=== PATIENT | male | born 1965 | race Caucasian/White ===

== ENCOUNTER 2016-12-31 12:01 | Emergency (ER) | payer BC ==
[~2016-12-31] VITALS: Ht 177.8 cm; Wt 131.1 kg
[2016-12-31 12:15] VITALS: BP 174/117
[2016-12-31] MEDS ORDERED: OXYCODONE/APAP 5/325 TABLET. PO ONE (12:30)
[2016-12-31] MEDS ORDERED: NEOMY/BACITR/POLYMYXIN OINT PACKET. TP ONE (12:30)
[2016-12-31] MEDS ORDERED: DIPHTH,PERTUSS(ACELL),TET TOX 0.5 ML DISP.SYRIN. VAX IM ONE (12:30)
[2016-12-31] MEDS ORDERED: HYDROMORPHONE 2 MG/ML VIAL. IM ONE (13:00)
[2016-12-31] MEDS ORDERED: OXYC-323 PO (13:18)
[2016-12-31] MEDS ORDERED: SILV20CR4 TP (13:18)
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
== END 2016-12-31 13:21 | disposition home or self-care (01) ==
LOC: ER 12:01
DX: T23.201A Burn of second degree of right hand, unspecified site, initial encounter (principal); T23.171A Burn of first degree of right wrist, initial encounter; T21.12XA Burn of first degree of abdominal wall, initial encounter; T22.111A Burn of first degree of right forearm, initial encounter; T31.0 Burns involving less than 10% of body surface; E78.00 Pure hypercholesterolemia, unspecified; I10 Essential (primary) hypertension; E03.9 Hypothyroidism, unspecified; X12.XXXA Contact with other hot fluids, initial encounter; Y93.89 Activity, other specified; Y92.89 Other specified places as the place of occurrence of the external cause; Y99.8 Other external cause status
CPT/HCPCS: 90471; 90715; 96372; 99284; J1170

== ENCOUNTER → 2018-05-27 | Outpatient (CLI) | payer OTHER | END | disposition home or self-care (01) | LOC: KCIC US 12:06 | DX: M79.89 Other specified soft tissue disorders (principal) | CPT/HCPCS: 93971 ==

== ENCOUNTER 2021-07-27 08:46 | Inpatient (IN) | payer OTHER ==
[~2021-07-27] VITALS: Ht 172.7 cm; Wt 123.6 kg
[~2021-07-27 08:46] MED LIST: OXYC1TAB15 PO; SILV20CR14 TP
[2021-07-27 21:15] VITALS: BP 145/103
[2021-07-27 21:30] VITALS: BP 133/88
[2021-07-27 21:45] VITALS: BP 159/107
[2021-07-27 22:00] VITALS: BP 133/86
[2021-07-27 22:15] VITALS: BP 157/107
[2021-07-27 23:00] VITALS: BP 158/94
[2021-07-27] MEDS ORDERED: ATROPINE 0.5 MG/5 ML DISP.SYRINGE. IV PRN (23:00)
[2021-07-27] MEDS ORDERED: IV NORMAL SALINE 500ML BAG 500 ML IV PRN (23:00)
[2021-07-27] MEDS: DEXMEDETOMIDINE 400 MCG in IV NORMAL SALINE 100ML 96 ML IV PRN (23:27)
[2021-07-27] MEDS: STERILE WATER for RESP 1,000 ML BAG. INH PRN ×2 (23:27→23:50)
[2021-07-28] VITALS (24 sets, daily range): BP systolic 111–168; BP diastolic 70–112
[2021-07-28] MEDS ORDERED: CHOL500021 PO (03:59)
[2021-07-28] MEDS ORDERED: ASPI-630 PO (03:59)
[2021-07-28] MEDS ORDERED: PANT40TA77 PO (03:59)
[2021-07-28] MEDS ORDERED: LEVO25TA4 PO (03:59)
[2021-07-28] MEDS ORDERED: LISI1TAB20 PO (03:59)
[2021-07-28] MEDS ORDERED: AMLO-186 PO (03:59)
[2021-07-28] MEDS ORDERED: SIMV10TA15 PO (03:59)
--- NOTE | 2021-07-28 04:00 | NUR ---
Patient admitted to room 105 via gurney accompanied by junior oracle dba x2 at 2100. Patient impulsive, oriented to person, place, and situation. Patient on bipap but SOA and tachypnic. Lungs diminished. Patient attached to ICU monitors, SR on monitor. No complaints of pain. Patient complaining of discomfort with bipap. Patient oriented to unit routines, call light, bed controls, tv controls, activity level (bedrest), and diet (regular). Urinal placed at bedside. Patient stable at this time. Will call Dr. Desai for orders. Patient placed on Vapotherm at 40L/100% at 2300, sats sitting at 87-91%. Precedex started to calm patient after he became increasingly impulsive and got out of bed. Patient's breathing slowed. At 0345 patient's sats dropped to low 80s despite attempts to deep breathe and bolus of Precedex. Patient placed back on bipap and sats maintaining in low to mid 90s. Patient stable and comfortable, will continue to monitor. See admission assessment and documentation for further information.
[2021-07-28 05:49] LABS: BASO % 0 % (0-3); CREATININE 1.1 mg/dL (0.7-1.3); EOS % 0 % (0-3); GFR 69.8; HEMATOCRIT 44.1 % (39.0-53.0); HEMOGLOBIN 15.1 g/dL (13.0-17.5); LYMPH # 0.5 x10^3/uL (1.0-4.8); LYMPH % 6 % (24-48); MEAN CORPUSCULAR HEMOGLOBIN 29 pg (25-35); MEAN CORPUSCULAR HGB CONC 34 g/dL (31-37); MEAN CORPUSCULAR VOLUME 85 fL (79-100); MONO # 0.4 x10^3/uL (0.0-1.1); MONO % 4 % (0-9); NEUT # 7.8 x10^3/uL (1.8-7.7); NEUT % 90 % (31-73); PLATELET COUNT 327 x10^3/uL (140-400); POTASSIUM 3.8 mmol/L (3.5-5.1); RED CELL DISTRIBUTION WIDTH 15.1 % (11.5-14.5); WHITE BLOOD COUNT 8.8 x10^3/uL (4.0-11.0)
[2021-07-28] MEDS: DEXMEDETOMIDINE 400 MCG in IV NORMAL SALINE 100ML 96 ML IV PRN ×4 (06:04→22:53)
[2021-07-28 07:43] LABS: BASE EXCESS ABG -4 mmol/L (-3-3); HCO3 ABG 19 mmol/L (21-28); PCO2 ABG 27 mmHg (35-46); PO2 ABG 58 mmHg (75-108); SAT O2 ABG 90 % (92-99)
[2021-07-28 08:31] LABS: FIO2 ABG 100
[2021-07-28] MEDS ORDERED: ACETAMINOPHEN 325 MG TABLET. PO PRN (09:00)
[2021-07-28] MEDS ORDERED: ONDANSETRON PF 4 MG/2 ML VIAL. IVP PRN (09:00)
--- NOTE | 2021-07-28 10:27 | CONS ---
DATE OF CONSULTATION: 07/28/2021 PULMONARY CONSULTATION ATTENDING PHYSICIAN: Dr. Desai. REASON FOR CONSULTATION: Respiratory failure, COVID-19 viral pneumonia. HISTORY OF PRESENT ILLNESS: The patient is a 56-year-old male who is obese with a BMI of 39. The patient is a nonsmoker. He has past medical history of hypertension, hyperlipidemia. He was brought initially to [facility] with dyspnea, hypoxic respiratory failure secondary to COVID-19 pneumonia. The patient did not receive any COVID vaccine. He was transferred to our facility as his oxygen requirement continued to increase. He is currently on BiPAP at 100% FIO2. Setting is 16/8. His saturations are in the mid to high 90s. His ABG showed a pH of 7.45, pCO2 of 27 and a pO2 of 58 with bicarbonate of 19. His BUN was 34, creatinine 1.1. I have been asked to see him for further evaluation. He does not appear to be in any obvious respiratory distress. No paradoxical breathing. PAST MEDICAL HISTORY: Significant for history of hypertension, hyperlipidemia, osteomyelitis, cellulitis of the left foot and seasonal allergies. PAST SURGICAL HISTORY: Left foot I and D. SOCIAL HISTORY: Nonsmoker. FAMILY HISTORY: Father alive. Mother with MVA. REVIEW OF SYSTEMS: Unable to obtain details system review as the patient is on a BiPAP. MEDICATIONS: Reviewed as listed in the MRAD including Lovenox for DVT prophylaxis, Zosyn and azithromycin along with dexamethasone. PHYSICAL EXAMINATION: GENERAL: He is in no obvious respiratory distress, no paradoxical breathing. He is obese. VITAL SIGNS: Visual exam done due to COVID-19. He is on BiPAP 100% FIO2. Saturations in the mid 90s. He is afebrile. SKIN: With no rash. EXTREMITIES: No leg edema. LABORATORY DATA: Reviewed. ABG discussed in my history of present illness. Sodium 142, potassium 3.8, chloride 108, bicarbonate 22, BUN 34, creatinine 1.1. Calcium 8.0. White cell count 8.8. IMPRESSION: 1. Acute hypoxic respiratory failure secondary to COVID-19 viral pneumonia requiring 100% FiO2 via BiPAP. 2. Abnormal chest x-ray with diffuse bilateral patchy interstitial infiltrates consistent with COVID-19 viral pneumonia. 3. Unvaccinated for COVID-19. 4. Underlying obesity, also contributing to hypoxia. RECOMMENDATIONS: 1. We will continue present 100% FiO2 via BiPAP. 2. The patient is at risk for respiratory failure and need for mechanical ventilation. We will watch his respiratory status closely. 3. We will use Precedex for anxiety and restlessness. 4. Continue empiric antibiotic. 5. Dexamethasone per protocol. 6. Finish the course of remdesivir. 7. Lovenox for DVT prophylaxis. 8. Chart reviewed. Imaging studies reviewed. Discussed with Dr. Desai. Total critical care time 37 minutes. CLYDE/CAMRYN DR: CLYDE/jackeline TID: [id number]
[2021-07-28] MEDS: AZITHROMYCIN 250 MG TABLET. PO SCH (10:33)
[2021-07-28] MEDS: DEXAMETHASONE SOD PHOS 4 MG/ML VIAL IVP SCH (10:34)
--- NOTE | 2021-07-28 11:04 | HP ---
ADMIT DATE: 07/27/2021 HISTORY OF PRESENT ILLNESS: The patient is a 56-year-old male patient who was admitted to [facility] through the Emergency Room with a complaint of shortness of breath and reports that the onset was about 9 days ago without any known inciting event, sick contact or recent travel. initial upper respiratory symptoms such as rhinorrhea and postnasal drip cough, with increased wheezing and inability to catch his breath. He went into his primary care provider's office on the day of admission, was found to be 79% on room air, prompting emergency medical service personnel to be called and the patient transferred to [facility] Emergency Room. He apparently has been following with his primary care physician and has not been there quite for years, has no known medical issues. Does not take any medicines. Denies smoking, alcohol or illicit drugs. No known history of cardiac disease, significant family history. He is unvaccinated against COVID. He was evaluated in the Emergency Room and has had lab work as well as imaging studies. His chest x-ray showed he has multifocal interstitial infiltrate, suspected trace pleural effusion, no pneumothorax. The heart is normal in size. His white cell count, hemoglobin, hematocrit, and platelets were normal. Chemistry also showed chronic kidney disease. His blood gases on admission showed severe hypoxemia and his D-dimer was 1.56, and on 07/25, he was found to be positive for coronavirus infection with PCR and rapid testing. He was admitted to the ICU and apparently his oxygen requirement has been steadily worsening and he was on 15 liters by nasal cannula and required BiPAP machine with FiO2 of 100% oxygen. As he continued to desaturate, a decision was made to transfer him to [facility] to ICU for further evaluation and treatment. He has received remdesivir, piperacillin and azithromycin as well as dexamethasone. PAST MEDICAL HISTORY: Apparently unremarkable. PAST SURGICAL HISTORY: Unremarkable. ALLERGIES: HE IS ALLERGIC TO CAT DANDER. MEDICATIONS: He was on no medication at home. FAMILY HISTORY: Unremarkable. SOCIAL HISTORY: He does not smoke, drink alcohol or use recreational drugs. PHYSICAL EXAMINATION: GENERAL: When he was transferred to [facility], he was apparently tachypneic, hypoxic, desaturates with minimal exertion. There was no pallor, jaundice, cyanosis or thyromegaly. No jugular venous distention. No lower limb edema. VITAL SIGNS: His heart rate was 78, blood pressure is 137/92, temperature was 98.1, respiratory rate was 28 and oxygen saturation was 90% on FiO2 of 100% on BiPAP machine. HEAD, EYES, EARS, NOSE, AND THROAT: Normocephalic, atraumatic. NECK: Supple. HEART: Showed normal first and second heart sounds, no gallop, rub or murmur. CHEST: Clear to auscultation, showed central trachea, equal bilateral expansion, air entry, vesicular breath sounds with bilateral crepitation and scattered rhonchi. ABDOMEN: Distended, soft, nontender. NEUROLOGIC: He was grossly intact. LABORATORY DATA: As of yesterday showed a white cell count 5800, hemoglobin 15.7, hematocrit 46.7, MCV 86 and platelet count 270,000 with normal manual differential. His chemistry showed a serum sodium 136, potassium 4.1, chloride 104, bicarbonate 25, anion gap of 7, BUN 38, creatinine 1.4. Estimated GFR was 52 mL per minute. Glucose 159, calcium was 8.1. His beta natriuretic peptide was only 45. Total protein 6.8, albumin 3. His D-dimer was 1.56 and his serology showed that he is positive for coronavirus by rapid testing and also by PCR. His chest x-ray showed that there is multifocal interstitial infiltrate, there are suspected trace pleural effusions. There is no pneumothorax. Heart size is normal and his chest x-ray showed that there is stable multifocal right upper and lower lobe and left lower lobe infiltrate. No significant pleural effusion is seen. No pneumothorax and stable cardiac silhouette. ASSESSMENT AND PLAN: In summary, this is a 56-year-old male patient who was transferred from [facility] ICU to [facility] with acute hypoxic respiratory failure, COVID-19 pneumonia versus superimposed community-acquired pneumonia. Plan is to continue with remdesivir, dexamethasone. Continue with IV antibiotic in the form of Zosyn and azithromycin. I will consult the lead generation marketing manager and follow him closely on a daily basis. NERISSA/MIGUEL DR: Charlie TID: [id number]
[2021-07-28 11:23] LABS: % ATYL 1 % (0-0); % BANDS 2 % (0-9); % LYMPHS 9 % (24-48); % MONOS 1 % (0-10); % SEGS 87 % (35-66); NUCLEATED RBC 1; PLT ESTIMATE ADEQUATE (ADEQUATE)
[2021-07-28] MEDS: PIPERACILLIN/TAZOBACTAM 3.375 GM in IV NORMAL SALINE 50ML 50 ML IV SCH ×3 (11:54→23:55)
--- NOTE | 2021-07-28 13:09 | NUR ---
SS following for discharge planning. SS reviewed pt chart and discussed with pt RN. Pt is from home and is currently on the BIPAP at 100%. COVID19 positive. Pt on Precedex. Pt on PO Azithromycin, IV Zosyn, IV Decadron, and IV Remdesivir. SS will continue to follow for discharge planning.
--- NOTE | 2021-07-28 14:40 | NUR ---
Allergies and reactions cat dander, fluticasone INR none BUN 34 Cr 1.1 Platelets 327 Blood culture done none blood culture results Order Verified yes Consent signed yes Previous PICC placement yes Past Medical/Surgical history and current diagnosis reviewed yes Patient Medical /Surgical History Related to PICC line placement Past central line or venous access device placement Problems breathing lying flat Septicemia/Bacteremia Special considerations for PICC line placement Infections Severe peripheral edema PICC placement indication Caustic medication class drug usage, buttermaker helper antibiotic usage, Multiple/ Frequent blood draws, Poor peripheral intravenous access Sarah Jama RN PICC Nurse Addendum: 07/28/21 at 1448 by SARAH JAMA RN Amended: Links added.
--- NOTE | 2021-07-28 14:43 | RAD ---
PORTABLE CHEST 1V Clinical History: PICC LINE PLACEMENT Technique: AP view of the chest was obtained at 07/28/2021 2:16 PM. Comparison: Chest radiograph from outside facility ([facility]), yesterday Findings: There is a new right upper extremity PICC line with tip projecting over the expected region of the cavoatrial junction. There is new subcutaneous emphysema in the bilateral neck. There is new pneumomediastinum. No definitive pneumothorax is identified. Minimal lucency in the right lung base is seen which could be a trace pneumothorax versus artifactual from adjacent infiltrate. Basilar predominant, patchy bilateral infiltrates are present throughout the lungs which have mildly increased in the interim. No acute osseous changes are identified. 1.Right upper extremity PICC line with tip projecting over the expected region of the cavoatrial junction 2. New pneumomediastinum and subcutaneous emphysema in the bilateral neck 3. No definitive pneumothorax is seen. Lucency in the right lung base makes exclusion of a tiny pneumothorax difficult. Attention on follow-up radiograph recommended 4. Patchy basilar predominant infiltrates bilaterally, mildly increased in the interim These findings were discussed with the patient's Sussy 2:25 PM
--- NOTE | 2021-07-28 14:45 | NUR ---
Procedure: Following complete explanation of the PICC procedure including the indications, risks, and potential complications, informed consent was obtained. The possibility for infection was discussed along with signs, symptoms, and prevention. All the questions were answered.yes Written and verbal patient education was provided. yes Hand hygiene performed. yes Standardized central line checklist was utilized. yes The patient was placed in the supine position, the arm was prepped with chlorhexidine and patient draped with maximum sterile barrier. 2 mL 1% lidocaine was infiltrated into the skin to provide local anesthesia. A thorough assessment of right upper extremity completed. Using real-time ultrasound guidance and standardized micro puncture set, the Basilic vein was punctured and a peel away sheath was placed using the modified Seldinger technique. A tip location device was used to ensure adequate catheter placement. The catheter was secured using a securement device and an antimicrobial patch was applied directly on the insertion site followed by a transparent dressing. All ports withdraw blood and flush without resistance. Patient tolerated the procedure without apparent complication(s). triple Lumen Power PICC placement successful and uncomplicated. Placement verified by EKG tip confirmation system and/or chest x-ray. Tip located in the CAJ Complications:none Addendum: 07/28/21 at 1448 by MARYANNE JOHNSON RN Amended: Links added.
--- NOTE | 2021-07-28 15:07 | PDOC ---
Provider Note Date of Service: DATE: 07/28/21 TIME: 15:05 Provider Note Called by RN about CXR post PICC line placement. I have reviewed CXR . Patient has developed Pneu-mediastinum. I did not see any definite PTX. d/w IR Dr Marin. will f/u CXR in am. I have reduced IPAP setting on BIPAP and will keep low TV Justifications for Admission Other Justification GERRY MONROY MD Jul 28, 2021 15:07
[2021-07-28] MEDS ORDERED: ENOXAPARIN 40 MG/0.4 ML SYRINGE. SQ SCH (17:00)
[2021-07-28] MEDS: REMDESIVIR 100mg in NORMAL SALINE 250ML X 4 DAYS IV SCH (17:40)
[2021-07-28] MEDS: fentaNYL PF VIAL 100 MCG/2 ML VIAL IVP PRN (17:40)
[2021-07-28] MEDS: LACTOBACILLUS RHAMNOSUS GG 1 CAPSULE. PO SCH (21:08)
--- NOTE | 2021-07-28 23:49 | PN ---
DATE: 07/28/2021 SUBJECTIVE: The patient is a 56-year-old male patient who was transferred from [facility] in the ICU where he was admitted with acute hypoxic respiratory failure due to coronavirus pneumonia with possible superimposed community-acquired pneumonia. His oxygen requirement has dramatically increased and he was on BiPAP, continued to desaturate even with FiO2 of 100%. He was treated with dexamethasone, remdesivir, antibiotics and given that he continued to be extremely tachypneic and hypoxic, a decision was made to transfer him to [facility] ICU. Apparently, attempt was made to treat him ____ was not helpful. He continued to desaturate and therefore, he continued to be on BiPAP machine, maintaining his oxygen saturation about 90% on FiO2 100%. When I saw him today, he was resting slightly propped up in bed, in no apparent respiratory distress. He continues to desaturates dramatically when the BiPAP is discontinued; however, he denied any chest pain or cough. PHYSICAL EXAMINATION: GENERAL: When I examined him, he looked well and was clearly in no apparent respiratory distress. No pallor, no jaundice, no cyanosis, or thyromegaly. No jugular venous distention. No limb edema. VITAL SIGNS: His heart rate was 62, blood pressure was 127/84, temperature 97.8, respiratory rate was 17 and oxygen saturation was 94%. HEAD, EYES, EARS, NOSE, AND THROAT: Normocephalic, atraumatic. NECK: Supple. HEART: Showed normal first and second heart sounds, no gallop, rub or murmur. CHEST: Showed central trachea, equal bilateral expansion, air entry, vesicular breath sounds, bilateral basal crepitation posteriorly. Few scattered rhonchi. ABDOMEN: Distended, soft, nontender. NEUROLOGIC: He was grossly intact. LABORATORY DATA: This morning showed a white cell count of 8800, hemoglobin 15, hematocrit 44, MCV 85 and platelet count of 327,000. His chemistry showed a serum sodium 142, potassium 3.8, chloride 108, bicarbonate 22, anion gap of 12, BUN 34, creatinine 1.1. Estimated GFR was 69 mL per minute. His glucose 169 and calcium was 8, his blood gases showed a pH of 7.45, pCO2 of 27, pO2 of 58, bicarbonate 19 and oxygen saturation was 90% on FiO2 of 100%. Did have a venous Doppler ultrasound of both lower extremities that revealed no evidence of deep vein thrombosis. PLAN: My plan is to continue with IV antibiotic. Continue with dexamethasone, remdesivir. I added Tylenol as well as fentanyl for pain and Lovenox for DVT prophylaxis. We will monitor obviously, his labs and progress and we have already consulted the research librarian to assist with his management. CORRINE/JOAQUIM DR: Charlie TID: [id number]
[2021-07-29] VITALS (28 sets, daily range): BP systolic 71–170; BP diastolic 50–113
[2021-07-29] MEDS: DEXMEDETOMIDINE 400 MCG in IV NORMAL SALINE 100ML 96 ML IV PRN ×6 (05:17→22:36)
[2021-07-29] MEDS: fentaNYL PF VIAL 100 MCG/2 ML VIAL IVP PRN (06:07)
[2021-07-29] MEDS: PIPERACILLIN/TAZOBACTAM 3.375 GM in IV NORMAL SALINE 50ML 50 ML IV SCH ×3 (06:11→17:20)
[2021-07-29 06:37] LABS: ALBUMIN 2.1 g/dL (3.4-5.0); ALBUMIN/GLOBULIN RATIO 0.5 (1.0-1.7); CALCIUM 7.8 mg/dL (8.5-10.1); GFR 77.9; HEMATOCRIT 45.1 % (39.0-53.0); HEMOGLOBIN 15.3 g/dL (13.0-17.5); RED BLOOD COUNT 5.34 x10^6/uL (4.30-5.70); RED CELL DISTRIBUTION WIDTH 14.7 % (11.5-14.5); TOTAL BILIRUBIN 0.6 mg/dL (0.2-1.0); TOTAL PROTEIN 6.2 g/dL (6.4-8.2); WHITE BLOOD COUNT 11.6 x10^3/uL (4.0-11.0)
[2021-07-29] MEDS ORDERED: MORPHINE SULFATE 4 MG/ML INJ. IV PRN (07:00)
[2021-07-29] MEDS ORDERED: MORPHINE SULFATE 2 MG/ML INJ. IV PRN (07:00)
[2021-07-29] MEDS ORDERED: PROPOFOL 100 ML IV PRN (07:00)
[2021-07-29] MEDS ORDERED: fentaNYL PF VIAL 100 MCG/2 ML VIAL IV PRN ×2 (07:00)
--- NOTE | 2021-07-29 07:00 | PDOC ---
PULMONARY PROGRESS NOTES DATE: 07/29/21 TIME: 06:56 Subjective on bipap agitated tachypneac on precedex pulling bipap mask at times sat in 80s didnt tolerate vapotherm Vitals Vital Signs Date Time Temp Pulse Resp B/P (MAP) Pulse Ox O2 Delivery O2 Flow Rate FiO2 07/29/21 06:00 84 37 139/95 (110) 86 BiPAP/CPAP 07/29/21 04:00 97.7 97.7 Comments ros unable to obtain tachypneac NCAT rrr + accessory muscle use +paradoxical abd motion no edema no rash Labs Laboratory Tests Test 07/28/21 05:10 07/28/21 07:39 07/29/21 05:45 White Blood Count 8.8 x10^3/uL (4.0-11.0) 11.6 x10^3/uL (4.0-11.0) Red Blood Count 5.20 x10^6/uL (4.30-5.70) 5.34 x10^6/uL (4.30-5.70) Hemoglobin 15.1 g/dL (13.0-17.5) 15.3 g/dL (13.0-17.5) Hematocrit 44.1 % (39.0-53.0) 45.1 % (39.0-53.0) Mean Corpuscular Volume 85 fL (79-100) 85 fL (79-100) Mean Corpuscular Hemoglobin 29 pg (25-35) 29 pg (25-35) Mean Corpuscular Hemoglobin Concent 34 g/dL (31-37) 34 g/dL (31-37) Red Cell Distribution Width 15.1 % (11.5-14.5) 14.7 % (11.5-14.5) Platelet Count 327 x10^3/uL (140-400) 248 x10^3/uL (140-400) Neutrophils (%) (Auto) 90 % (31-73) Lymphocytes (%) (Auto) 6 % (24-48) Monocytes (%) (Auto) 4 % (0-9) Eosinophils (%) (Auto) 0 % (0-3) Basophils (%) (Auto) 0 % (0-3) Neutrophils # (Auto) 7.8 x10^3/uL (1.8-7.7) Lymphocytes # (Auto) 0.5 x10^3/uL (1.0-4.8) Monocytes # (Auto) 0.4 x10^3/uL (0.0-1.1) Eosinophils # (Auto) 0.0 x10^3/uL (0.0-0.7) Basophils # (Auto) 0.0 x10^3/uL (0.0-0.2) Segmented Neutrophils % 87 % (35-66) Band Neutrophils % 2 % (0-9) Lymphocytes % 9 % (24-48) Atypical Lymphocytes % (Manual) 1 % (0-0) Monocytes % 1 % (0-10) Nucleated Red Blood Cells 1 Platelet Estimate Adequate (ADEQUATE) Sodium Level 142 mmol/L (136-145) 142 mmol/L (136-145) Potassium Level 3.8 mmol/L (3.5-5.1) 4.0 mmol/L (3.5-5.1) Chloride Level 108 mmol/L (98-107) 108 mmol/L (98-107) Carbon Dioxide Level 22 mmol/L (21-32) 23 mmol/L (21-32) Anion Gap 12 (6-14) 11 (6-14) Blood Urea Nitrogen 34 mg/dL (8-26) 29 mg/dL (8-26) Creatinine 1.1 mg/dL (0.7-1.3) 1.0 mg/dL (0.7-1.3) Estimated GFR (Cockcroft-Gault) 69.8 77.9 Glucose Level 169 mg/dL (70-99) 131 mg/dL (70-99) Calcium Level 8.0 mg/dL (8.5-10.1) 7.8 mg/dL (8.5-10.1) O2 Saturation 90 % (92-99) Arterial Blood pH 7.45 (7.35-7.45) Arterial Blood pCO2 at Patient Temp 27 mmHg (35-46) Arterial Blood pO2 at Patient Temp 58 mmHg (75-108) Arterial Blood HCO3 19 mmol/L (21-28) Arterial Blood Base Excess -4 mmol/L (-3-3) FiO2 100 BUN/Creatinine Ratio 29 (6-20) Total Bilirubin 0.6 mg/dL (0.2-1.0) Aspartate Amino Transf (AST/SGOT) 54 U/L (15-37) Alanine Aminotransferase (ALT/SGPT) 56 U/L (16-63) Alkaline Phosphatase 55 U/L (46-116) Total Protein 6.2 g/dL (6.4-8.2) Albumin 2.1 g/dL (3.4-5.0) Albumin/Globulin Ratio 0.5 (1.0-1.7) Laboratory Tests Test 07/28/21 07:39 07/29/21 05:45 O2 Saturation 90 % (92-99) Arterial Blood pH 7.45 (7.35-7.45) Arterial Blood pCO2 at Patient Temp 27 mmHg (35-46) Arterial Blood pO2 at Patient Temp 58 mmHg (75-108) Arterial Blood HCO3 19 mmol/L (21-28) Arterial Blood Base Excess -4 mmol/L (-3-3) FiO2 100 White Blood Count 11.6 x10^3/uL (4.0-11.0) Red Blood Count 5.34 x10^6/uL (4.30-5.70) Hemoglobin 15.3 g/dL (13.0-17.5) Hematocrit 45.1 % (39.0-53.0) Mean Corpuscular Volume 85 fL (79-100) Mean Corpuscular Hemoglobin 29 pg (25-35) Mean Corpuscular Hemoglobin Concent 34 g/dL (31-37) Red Cell Distribution Width 14.7 % (11.5-14.5) Platelet Count 248 x10^3/uL (140-400) Sodium Level 142 mmol/L (136-145) Potassium Level 4.0 mmol/L (3.5-5.1) Chloride Level 108 mmol/L (98-107) Carbon Dioxide Level 23 mmol/L (21-32) Anion Gap 11 (6-14) Blood Urea Nitrogen 29 mg/dL (8-26) Creatinine 1.0 mg/dL (0.7-1.3) Estimated GFR (Cockcroft-Gault) 77.9 BUN/Creatinine Ratio 29 (6-20) Glucose Level 131 mg/dL (70-99) Calcium Level 7.8 mg/dL (8.5-10.1) Total Bilirubin 0.6 mg/dL (0.2-1.0) Aspartate Amino Transf (AST/SGOT) 54 U/L (15-37) Alanine Aminotransferase (ALT/SGPT) 56 U/L (16-63) Alkaline Phosphatase 55 U/L (46-116) Total Protein 6.2 g/dL (6.4-8.2) Albumin 2.1 g/dL (3.4-5.0) Albumin/Globulin Ratio 0.5 (1.0-1.7) Medications Active Scripts Medications Dose Route/Sig Max Daily Dose Days Date Category Dose Instructions Simvastatin 10 Mg Tablet 1 Tab PO QHS 07/28/21 Reported Amlodipine Besylate 5 Mg Tablet 5 Mg PO DAILY 07/28/21 Reported Lisinopril-Hctz 20-25 Mg Tab (Lisinopril/Hydrochlorothiazide) 1 Each Tablet 1 Tab PO DAILY 07/28/21 Reported Levothyroxine Sodium 25 Mcg Tablet 1 Tab PO DAILY 07/28/21 Reported D3-50 (Cholecalciferol (Vitamin D3)) 50,000 Unit Capsule 5,000 Unit PO DAILY 07/28/21 Reported Pantoprazole Sodium (Pantoprazole Sodium) 40 Mg Tablet.dr 20 Mg PO DAILYAC 07/28/21 Reported Aspirin 81 Mg Tab.chew 81 Mg PO DAILY 07/28/21 Reported Silvadene (Silver Sulfadiazine) 20 Gm Cream..g. 1 Keo TP BID 12/31/16 Rx Apply twice a day to the burn area Percocet 5-325 Mg Tablet (Oxycodone/Acetaminophen) 1 Each Tablet 1-2 Tab PO Q4-6HRS 12/31/16 Rx Comments cxr reviewed b lat infilt ett ok Impression . IMPRESSION: 1. Acute hypoxic respiratory failure secondary to COVID-19 viral pneumonia/ARDS worsening 2. Abnormal chest x-ray with diffuse bilateral patchy interstitial infiltrates consistent with COVID-19 viral pneumonia. 3. Unvaccinated for COVID-19. 4. Underlying obesity, also contributing to hypoxia. 5. suspect ayesha Plan . RECOMMENDATIONS: 1. agitated on bipap 100% agreeable with intubation will ask anesthesia to intubate titrate fio2 to keep sat 94% abg reviewed increase rr to 28 increase peep slowly to keep sat 90% cxr b lat infilt ett ok 2. when intubated will add versed fentanyl to sedate 3. precedex 4. Continue empiric antibiotic. 5. Dexamethasone per protocol. 6. Finish the course of remdesivir. 7. Lovenox for DVT prophylaxis. 8. Chart reviewed. Imaging studies reviewed. discussed w rn rt multiple times critically ill cc time 30 min no overlap IVONE EVERETT MD Jul 29, 2021 06:59
--- NOTE | 2021-07-29 07:59 | RAD ---
EXAM: CHEST 1 VIEW History: Pneumomediastinum COMPARISON: 07/28/2021 TECHNIQUE: Single portable radiograph of the chest FINDINGS: Mild cardiomegaly. Pneumomediastinum is again identified. There are patchy diffuse airspac e opacities bilateral lungs likely atelectasis or infiltrate similar to prior exam. Right-sided PICC line tip projects in the proximal SVC region. Diffuse soft tissue emphysema in the lower neck and [address] st wall similar to prior exam. IMPRESSION: 1. Unchanged bilateral lung airspace opacities likely atelectasis or infiltrates. 2. Pneumomediastinum and diffuse soft tissue emphysema in the lower neck and chest wall similar to p rior exam. Electronically signed by: Kings Sullivan MD (07/29/2021 7:56 AM) [facility]
[2021-07-29] MEDS ORDERED: SUCCINYLCHOLINE 200 MG/10 ML VIAL. IV ONE (08:00)
[2021-07-29] MEDS ORDERED: VECURONIUM BOLUS 10 MG VIAL. IV PRN (08:00)
--- NOTE | 2021-07-29 08:01 | PDOC ---
Provider Note Date of Service: DATE: 07/29/21 TIME: 07:54 Provider Note ANESTHESIA note: Requested for intubation. Pt with Covid 19 respiratory failure currently on Bi-Pap. Pt. sedated with 100mg Propofol and 100mg Succinylcholine. #7.5 OET placed under direct visualization with#3 Glidescope without difficulty. BSBE, positive color change on EtCO2 indictor, secured at 23 cm at teeth by RT. Chest X-ray to be performed . placed on Ventilator. Justifications for Admission Other Justification BRANDYN JOINER CRNA Jul 29, 2021 08:01
--- NOTE | 2021-07-29 08:30 | NUR ---
Patient in respiratory distress, tachypneic, and very anxious, decision was made by Dr. Day to intubate. Patient intubated without problems. CXR completed to verify placement of ETT, KUB completed to verify OG tube placement. Notified Dr. Desai of ileus, received the order to keep strictly NPO, change azithromycin to IV, and start IV nutrition. Notified family of change in condition.
[2021-07-29] MEDS: MIDAZOLAM 100mg/100ml NS BAG 100 ML IV PRN ×2 (08:32→13:01)
--- NOTE | 2021-07-29 08:32 | RAD ---
EXAM: CHEST 1 VIEW History: Intubation COMPARISON: 07/29/2021 TECHNIQUE: Single portable radiograph of the chest FINDINGS: ET tube is identified in the trachea the level of the clavicles. The feeding tube is ident ified in the stomach. Right-sided PICC line with the tip projecting at SVC/RA junction. Pneumomediast inum is again identified. There are diffuse airspace opacities identified in the bilateral lungs agai n identified. Soft tissue emphysema lower neck and chest wall identified. IMPRESSION: 1. Lines and tubes as described. 2. Pneumomediastinum and diffuse airspace opacities in the lung similar to prior exam. Electronically signed by: Kings Sullivan MD (07/29/2021 8:30 AM) [id number]
--- NOTE | 2021-07-29 08:34 | RAD ---
Supine abdomen. HISTORY: OG placement Supine view the abdomen shows a gastric tube in good position. There are bilateral infiltrates in the lungs. There is bowel distention including small bowel and colon suggesting an ileus. IMPRESSION: 1. Bilateral infiltrates in the lungs. 2. OG tube in good position. 3. Bowel distention suggesting an ileus. Electronically signed by: Jerry Cochran MD (07/29/2021 8:31 AM) [id number]
--- NOTE | 2021-07-29 08:40 | PN ---
DATE: 07/29/2021 SUBJECTIVE: The patient has been apparently extremely agitated, tachypneic on Precedex, pulling his BiPAP mask at times, his oxygen saturation is only 80%. He did not tolerate Vapotherm and therefore, decision was made to intubate him. He was actually successfully intubated and was started on Versed and fentanyl. His D-dimer was extremely high, more than 20 mg and therefore, I will arrange for him to have venous Doppler ultrasound and will also start him on therapeutic dose of Lovenox as well as Protonix for GI prophylaxis. PHYSICAL EXAMINATION: GENERAL: When I saw him this morning, he was resting slightly propped up in bed, clearly tachypneic; however, there was no pallor, jaundice, cyanosis, no thyromegaly, no jugular venous distention. No limb edema. VITAL SIGNS: His heart rate was 84, blood pressure was 139/95, temperature was 97.7, respiratory rate 37, and oxygen saturation was 75% on FiO2 of 100%. HEAD, EYES, EARS, NOSE, EYES, EARS, NOSE, AND THROAT: Normocephalic, atraumatic. Has orotracheal and orogastric tubes in place. NECK: Supple. HEART: Normal first and second heart sound, no gallop or murmur. CHEST: Shows central trachea, equal chest expansion, air entry, vesicular breath sounds, very few scattered rhonchi. ABDOMEN: Distended, soft, nontender. NEUROLOGIC: He was sedated. LABORATORY DATA: As of this morning showed a white cell count of 11,600, hemoglobin 15, hematocrit 45, MCV 85 and platelet count 248,000. His serum sodium was 142, potassium 4, chloride 108, bicarbonate 23, anion gap of 11, BUN 29, creatinine 1, estimated GFR was 77.9 mL per minute. His glucose 131, calcium was 7.8. Total bilirubin, AST, ALT, alkaline phosphatase were normal. Total protein 6.2, albumin was 2. His D-dimer was extremely high, more than 20. ASSESSMENT: 1. Acute hypoxic respiratory failure. 2. COVID-19 pneumonia. PLAN: To continue with mechanical ventilation. Continue with sedation. Continue with empiric antibiotic, dexamethasone and remdesivir. I will order venous Doppler ultrasound and start him also on Lovenox 1 mg/kg subQ twice a day as well as Protonix for gastrointestinal prophylaxis. AMM/CAMRYN DR: Charlie TID: [id number]
[2021-07-29] MEDS: DEXAMETHASONE SOD PHOS 4 MG/ML VIAL IVP SCH (08:59)
[2021-07-29 09:00] LABS: BASE EXCESS COOX -7 mmol/L (-3-3); HCO3 COOX 22 mmol/L (21-28); METHEMOGLOBIN 0.4 % (0.0-1.9); OXYHEMOGLOBIN 78.7 %; PCO2 COOX 58 mmHg (35-46); PO2 COOX 54 mmHg (75-108); SAT O2 COOX 79 % (92-99)
[2021-07-29] MEDS: LACTOBACILLUS RHAMNOSUS GG 1 CAPSULE. PO SCH (09:00)
[2021-07-29] MEDS: AZITHROMYCIN 250 MG TABLET. PO SCH (09:00)
[2021-07-29] MEDS ORDERED: TPN PER PHARMACY MC PRN (09:15)
[2021-07-29] MEDS ORDERED: AA 4.25 %/CALCIUM/LYTES/D5W 1,000 ML IV SCH (10:00)
[2021-07-29] MEDS: AZITHROMYCIN 250 MG in IV NORMAL SALINE 250ML 250 ML IV SCH (10:51)
[2021-07-29] MEDS: NOREPINEPHRINE VIAL 8 MG in IV DEXTROSE 5% 250 ML IV PRN (11:29)
--- NOTE | 2021-07-29 11:30 | NUR ---
Pharmacy TPN Dosing Note S: MORENA HAMPTON is a 56 year old M Currently receiving Central Continuous TPN started 07/29/21 B:Pertinent PMH: NPO Height: 5 feet, 8 inches Weight: 121.5 kg Current diet: LABS: Sodium: 142 Potassium: 4.0 Chloride: 108 Calcium: 7.8 Corrected Calcium: Magnesium: CO2: 23 SCr: 1.0 Glucose: 131 Albumin: AST: 54 ALT: 56 TPN FORMULA: TPN TYPE: Central Continuous AMINO ACIDS: 60 gm DEXTROSE: 195 gm LIPIDS: gm SODIUM CHLORIDE: mEq SODIUM ACETATE: 70 mEq SODIUM PHOSPHATE: mmol POTASSIUM CHLORIDE: 50 mEq POTASSIUM ACETATE: mEq POTASSIUM PHOSPHATE: 13.6 mmol MAGNESIUM: 10 mEq CALCIUM: 10 mEq INSULIN: units MULTIPLE VITAMIN: 5 ml TRACE ELEMENTS: 1 ml(s) TPN PLAN: HOUSE TPN WITHOUT LIPID/PROPOFOL RUNNING, LAB IN AM WITH PHOS/MAG/ALB LEVEL. R: Begin TPN AT 63ML/HR Will monitor electrolytes, glucose, and tolerance to TPN. KEISHA EUBANKS [facility], 07/29/21 [id number]
[2021-07-29] MEDS: VECURONIUM BOLUS 10 MG VIAL. IV PRN ×2 (11:48→17:58)
[2021-07-29] MEDS ORDERED: fentaNYL HIGH DOSE PCA 2,750 ML IV PRN (12:15)
[2021-07-29] MEDS: fentaNYL HIGH DOSE PCA 55 ML IV PRN (13:01)
--- NOTE | 2021-07-29 17:53 | RAD ---
Bilateral lower extremity venous Doppler dated 07/29/2021 5:48 PM COMPARISON: none. CLINICAL INDICATION: Hypoxia Reason: severe hypoxia, swollen legs and elevated D DIMER, TECH NOTIFIED / Spl. Instructions: / History: FINDINGS: Grayscale, color-flow and spectral waveform analysis performed to include the deep venous system of b ilateral lower extremity. There is partially occlusive filling defect within the left popliteal vein. The left greater saphenous vein and calf veins are difficult to visualize. The remaining veins are p atent. IMPRESSION: 1. There is nonocclusive thrombosis of the left popliteal vein. The deep veins are otherwise patent. Electronically signed by: Thomas Storey MD (07/29/2021 5:51 PM) NIDIA
[2021-07-29] MEDS: REMDESIVIR 100mg in NORMAL SALINE 250ML X 4 DAYS IV SCH (17:58)
[2021-07-29 18:25] LABS: HEMATOCRIT 46.2 % (39.0-53.0); HEMOGLOBIN 15.2 g/dL (13.0-17.5); RED BLOOD COUNT 5.31 x10^6/uL (4.30-5.70); RED CELL DISTRIBUTION WIDTH 15.5 % (11.5-14.5)
--- NOTE | 2021-07-29 18:29 | RAD ---
Single view chest dated 07/29/2021 6:25 PM: COMPARISON: 07/29/2021 Clinical Indication: Emphysema. Findings: Single upright portable exam of the chest was performed. Heart and mediastinal contours are stable. E ndotracheal tube, nasogastric tube and right-sided PICC in place, unchanged. There is subcutaneous em physema at the lower neck and chest wall with small amount of pneumomediastinum. The degree of medias tinum may have slightly increased. There is no definite pneumothorax. Patchy airspace disease through out both lungs, unchanged. IMPRESSION: 1. Widespread airspace disease, not significant changed. 2. Stable position of tubes and lines. 3. Subcutaneous emphysema and pneumomediastinum, similar to prior study IMPRESSION: No acute radiographic abnormality. Electronically signed by: Thomas Storey MD (07/29/2021 6:26 PM) NIDIA
--- NOTE | 2021-07-29 18:34 | NUR ---
Noticed increase in swelling of left side of patient's neck with crepitus, notified Dr. Day, stat chest x-ray ordered. Had blood-tinged thick gastric output, irrigated OG tube. Petr stat hemogram, hgb and hct stable. Will continue to monitor.
--- NOTE | 2021-07-29 18:41 | NUR ---
Notified Dr. Desai of gastric contents and stable hemogram, received the order to increase protonix to BID, hold lovenox tonight and re-evaluate dose for tomorrow morning after labs are drawn. Also notified him of blood clot in leg.
[2021-07-29] MEDS ORDERED: NORCURON - VECURONIUM 50 MG in IV NORMAL SALINE 50ML 50 ML IV PRN (19:00)
[2021-07-29] MEDS: PANTOPRAZOLE IV PUSH 40 MG VIAL. IVP SCH (21:24)
[2021-07-29] MEDS ORDERED: AMINO ACID IV SCH (22:00)
[2021-07-29] MEDS ORDERED: TOTAL PARENTERAL NUTRITION IV SCH (22:00)
[2021-07-29] MEDS ORDERED: [UNRECOGNIZED DRUG - OTHER] IV SCH (22:00)
[2021-07-29] MEDS ORDERED: DEXTROSE 70% IV SCH (22:00)
[2021-07-30] VITALS (28 sets, daily range): BP systolic 79–141; BP diastolic 51–90
[2021-07-30] MEDS: PIPERACILLIN/TAZOBACTAM 3.375 GM in IV NORMAL SALINE 50ML 50 ML IV SCH ×5 (00:10→23:33)
[2021-07-30] MEDS: MIDAZOLAM 100mg/100ml NS BAG 100 ML IV PRN ×2 (01:46→14:16)
[2021-07-30] MEDS: DEXMEDETOMIDINE 400 MCG in IV NORMAL SALINE 100ML 96 ML IV PRN ×6 (02:51→23:34)
[2021-07-30 06:37] LABS: HEMATOCRIT 42.8 % (39.0-53.0); RED BLOOD COUNT 4.9 x10^6/uL (4.30-5.70); RED CELL DISTRIBUTION WIDTH 15.7 % (11.5-14.5); WHITE BLOOD COUNT 11.8 x10^3/uL (4.0-11.0)
[2021-07-30 06:42] LABS: CALCIUM 7.3 mg/dL (8.5-10.1); CREATININE 3.3 mg/dL (0.7-1.3); GFR 19.6; MAGNESIUM 3.2 mg/dL (1.8-2.4); PHOSPHORUS 6.6 mg/dL (2.6-4.7); POTASSIUM 5.8 mmol/L (3.5-5.1)
--- NOTE | 2021-07-30 07:00 | PDOC ---
PULMONARY PROGRESS NOTES DATE: 07/30/21 TIME: 06:54 Subjective on vent peep 14 fio2 100% on fentanyl versed precedex vec prn febrile on levo Vitals Vital Signs Date Time Temp Pulse Resp B/P (MAP) Pulse Ox O2 Delivery O2 Flow Rate FiO2 07/30/21 05:53 92 Ventilator 07/30/21 02:00 94 28 106/64 (78) 07/30/21 00:00 100.6 100.6 Comments ros unable to obtain NCAT neck sub cut emphysema rrr no accessory muscle use obese no edema no rash Labs Laboratory Tests Test 07/28/21 07:39 07/29/21 05:45 07/29/21 08:45 07/29/21 18:15 O2 Saturation 90 % (92-99) 79 % (92-99) Arterial Blood pH 7.45 (7.35-7.45) 7.20 (7.35-7.45) Arterial Blood pCO2 at Patient Temp 27 mmHg (35-46) 58 mmHg (35-46) Arterial Blood pO2 at Patient Temp 58 mmHg (75-108) 54 mmHg (75-108) Arterial Blood HCO3 19 mmol/L (21-28) 22 mmol/L (21-28) Arterial Blood Base Excess -4 mmol/L (-3-3) -7 mmol/L (-3-3) FiO2 100 100/vent White Blood Count 11.6 x10^3/uL (4.0-11.0) 20.0 x10^3/uL (4.0-11.0) Red Blood Count 5.34 x10^6/uL (4.30-5.70) 5.31 x10^6/uL (4.30-5.70) Hemoglobin 15.3 g/dL (13.0-17.5) 15.2 g/dL (13.0-17.5) Hematocrit 45.1 % (39.0-53.0) 46.2 % (39.0-53.0) Mean Corpuscular Volume 85 fL (79-100) 87 fL (79-100) Mean Corpuscular Hemoglobin 29 pg (25-35) 29 pg (25-35) Mean Corpuscular Hemoglobin Concent 34 g/dL (31-37) 33 g/dL (31-37) Red Cell Distribution Width 14.7 % (11.5-14.5) 15.5 % (11.5-14.5) Platelet Count 248 x10^3/uL (140-400) 200 x10^3/uL (140-400) D-Dimer (Ninfa) > 20.00 ug/mlFEU Sodium Level 142 mmol/L (136-145) Potassium Level 4.0 mmol/L (3.5-5.1) Chloride Level 108 mmol/L (98-107) Carbon Dioxide Level 23 mmol/L (21-32) Anion Gap 11 (6-14) Blood Urea Nitrogen 29 mg/dL (8-26) Creatinine 1.0 mg/dL (0.7-1.3) Estimated GFR (Cockcroft-Gault) 77.9 BUN/Creatinine Ratio 29 (6-20) Glucose Level 131 mg/dL (70-99) Calcium Level 7.8 mg/dL (8.5-10.1) Total Bilirubin 0.6 mg/dL (0.2-1.0) Aspartate Amino Transf (AST/SGOT) 54 U/L (15-37) Alanine Aminotransferase (ALT/SGPT) 56 U/L (16-63) Alkaline Phosphatase 55 U/L (46-116) Total Protein 6.2 g/dL (6.4-8.2) Albumin 2.1 g/dL (3.4-5.0) Albumin/Globulin Ratio 0.5 (1.0-1.7) Oxyhemoglobin 78.7 % Methemoglobin 0.4 % (0.0-1.9) Carbon Monoxide, Quantitative 0.3 % (0.0-1.9) Laboratory Tests Test 07/29/21 08:45 07/29/21 18:15 O2 Saturation 79 % (92-99) Arterial Blood pH 7.20 (7.35-7.45) Arterial Blood pCO2 at Patient Temp 58 mmHg (35-46) Arterial Blood pO2 at Patient Temp 54 mmHg (75-108) Arterial Blood HCO3 22 mmol/L (21-28) Arterial Blood Base Excess -7 mmol/L (-3-3) Oxyhemoglobin 78.7 % Methemoglobin 0.4 % (0.0-1.9) Carbon Monoxide, Quantitative 0.3 % (0.0-1.9) FiO2 100/vent White Blood Count 20.0 x10^3/uL (4.0-11.0) Red Blood Count 5.31 x10^6/uL (4.30-5.70) Hemoglobin 15.2 g/dL (13.0-17.5) Hematocrit 46.2 % (39.0-53.0) Mean Corpuscular Volume 87 fL (79-100) Mean Corpuscular Hemoglobin 29 pg (25-35) Mean Corpuscular Hemoglobin Concent 33 g/dL (31-37) Red Cell Distribution Width 15.5 % (11.5-14.5) Platelet Count 200 x10^3/uL (140-400) Medications Active Scripts Medications Dose Route/Sig Max Daily Dose Days Date Category Dose Instructions Simvastatin 10 Mg Tablet 1 Tab PO QHS 07/28/21 Reported Amlodipine Besylate 5 Mg Tablet 5 Mg PO DAILY 07/28/21 Reported Lisinopril-Hctz 20-25 Mg Tab (Lisinopril/Hydrochlorothiazide) 1 Each Tablet 1 Tab PO DAILY 07/28/21 Reported Levothyroxine Sodium 25 Mcg Tablet 1 Tab PO DAILY 07/28/21 Reported D3-50 (Cholecalciferol (Vitamin D3)) 50,000 Unit Capsule 5,000 Unit PO DAILY 07/28/21 Reported Pantoprazole Sodium (Pantoprazole Sodium) 40 Mg Tablet.dr 20 Mg PO DAILYAC 07/28/21 Reported Aspirin 81 Mg Tab.chew 81 Mg PO DAILY 07/28/21 Reported Silvadene (Silver Sulfadiazine) 20 Gm Cream..g. 1 Keo TP BID 12/31/16 Rx Apply twice a day to the burn area Percocet 5-325 Mg Tablet (Oxycodone/Acetaminophen) 1 Each Tablet 1-2 Tab PO Q4-6HRS 12/31/16 Rx Comments reviewed cxr 07/30 b lat infilt sub cut emphysema and pneumonmediastinum stable ett ok repeat cxr 07/29 reviewed b lat infilt sub cut emphysema and pneumonme diastinum stable ett ok Impression . IMPRESSION: 1. Acute hypoxic respiratory failure secondary to COVID-19 viral pneumonia/ARDS worsening 2. Abnormal chest x-ray with diffuse bilateral patchy interstitial infiltrates consistent with COVID-19 viral pneumonia. 3. Unvaccinated for COVID-19. 4. Underlying obesity, also contributing to hypoxia. 5. suspect ayesha 6. pneumomediatinum Plan . RECOMMENDATIONS: 1. cont vent support setting reviewed review abg make changes per abg titrate peep as tolerated 2. versed fentanyl precedex 3. cxr reviewed, stable monitor sub cut emphysema and pneumomediastinum 4. Continue empiric antibiotic. 5. Dexamethasone per protocol. 6. Finish the course of remdesivir. 7. Lovenox for DVT prophylaxis. 8. pressors to keep map 65 Chart reviewed. Imaging studies reviewed. discussed w rn rt multiple times critically ill cc time 30 min no overlap IVONE EVERETT MD Jul 30, 2021 07:00
[2021-07-30] MEDS ORDERED: PANTOPRAZOLE IV PUSH 40 MG VIAL. IVP SCH (07:30)
[2021-07-30] MEDS: NOREPINEPHRINE VIAL 8 MG in IV DEXTROSE 5% 250 ML IV PRN (08:15)
[2021-07-30] MEDS: PANTOPRAZOLE IV PUSH 40 MG VIAL. IVP SCH ×2 (08:22→20:45)
[2021-07-30] MEDS: DEXAMETHASONE SOD PHOS 4 MG/ML VIAL IVP SCH (08:23)
[2021-07-30 08:32] LABS: BASE EXCESS ABG -6 mmol/L (-3-3); HCO3 ABG 21 mmol/L (21-28); PCO2 ABG 47 mmHg (35-46); PO2 ABG 74 mmHg (75-108); SAT O2 ABG 94 % (92-99)
[2021-07-30 08:34] LABS: FIO2 ABG 100
[2021-07-30] MEDS ORDERED: SODIUM POLYSTYRENE SULFON/SORB 15 GM/60 ML ORAL.SUSP. PO ONE (09:00)
[2021-07-30] MEDS ORDERED: LACTULOSE 20 GM/30 ML SOLUTION. PO ONE (09:00)
--- NOTE | 2021-07-30 09:05 | RAD ---
EXAM: CHEST 1 VIEW History: Covid+, Ventilation COMPARISON: 07/29/2021 TECHNIQUE: Single portable radiograph of the chest Findings/ impression: The ET tube, feeding tube, right-sided PICC line are unchanged. Pneumomediastinum and diffuse subcuta neous emphysema in the lower neck and chest wall are again identified. Patchy airspace opacities bila teral lungs minimally improved since prior exam.. Electronically signed by: Kings Sullivan MD (07/30/2021 9:03 AM) [id number]
--- NOTE | 2021-07-30 09:12 | PN ---
DATE: 07/30/2021 SUBJECTIVE: The patient is intubated, heavily sedated on mechanical ventilation. He is also paralyzed, on fentanyl as well as Precedex. The nursing staff stated that his kidney function has dramatically worsened and in fact, his creatinine has risen from 1-3.3 and potassium is up to 5.8. PHYSICAL EXAMINATION: GENERAL: When I examined him this morning, there was no pallor, jaundice, cyanosis or thyromegaly. No jugular venous distention. Mild bilateral lower limb edema. VITAL SIGNS: His heart rate was 93, blood pressure was 113/68, temperature was 101.4, respiratory rate was 28 and oxygen saturation was 94% on FiO2 of 100%. HEAD, EYES, EARS, NOSE AND THROAT: Showed he is normocephalic, atraumatic. Has orotracheal and orogastric tube. NECK: Supple. HEART: Normal first and second heart sounds. No gallop, rub or murmur. CHEST: Shows central trachea, equal bilateral expansion, air entry, vesicular breath sounds. I could not really appreciate any crepitation or rhonchi anteriorly. ABDOMEN: Distended, soft, nontender. NEUROLOGIC: He is heavily sedated. His intake was 1130, output was 1600. LABORATORY DATA: As of this morning, his white cell count was 11,800; hemoglobin 14; hematocrit 43; MCV 87 and platelet count of 128,000. His chemistry showed a serum sodium 141, potassium 5.8, chloride 108, bicarbonate 25, anion gap of 8, BUN 62, creatinine 3.3. Estimated GFR was 19.6 mL per minute. His glucose was 59, calcium was 7.3, serum phosphorus 6.6, and magnesium was 3.2. ASSESSMENT: 1. COVID-19 pneumonia. 2. Questionable superimposed community-acquired pneumonia. 3. Acute hypoxic respiratory failure requiring intubation, mechanical ventilation. 4. Acute kidney injury as well as hyperkalemia. His potassium is up to 5.8. BUN and creatinine has dramatically risen to 56 and 3.3. PLAN: My plan is to flush his Butler catheter and give him a bolus of normal saline. We will also treat his hyperkalemia with calcium gluconate as well as Kayexalate through the gastrostomy tube. Also, his platelet counts are trending down from 327 down to 128. He does have some blood in the gastric aspirate yesterday and we held his Lovenox, although the venous Doppler ultrasound showed that he has a nonocclusive thrombus in the left popliteal vein. The deep veins are otherwise patent. I will also consult the valuer to assist with his management. PEDRO DR: Charlie TID: [id number]
--- NOTE | 2021-07-30 11:08 | PDOC2 ---
CONSULT Date of Consult Date of Consult DATE: 07/30/21 TIME: 10:59 History of Present Illness Reason for Visit: THIS IS A YR OLD WITH SOB. DX WITH COVID 19 PNEUMONIA. CURRENTLY ON THE VENT ON 100% FIO2 AND 15 OF PEEP. NO CKD. HAS HAD PROGRESSIVE BEN WITH CR 1.1 TO 3.3 TODAY. URINE IS ALSO DECREASING. HAS HAD SOME BORDERLINE HYPOTENSION BUT ADEQUATE MAP. HAS A GALVIN IN PLACE. HE IS UNVACCINATED. INITIALLY NEEDED BIPAP AND THEN FULL RESP DISTRESS AND FAILURE. NO OTHER HX NOTED PAST MEDICAL HISTORY: Significant for history of hypertension, hyperlipidemia, osteomyelitis, cellulitis of the left foot and seasonal allergies. Past Medical History Cardiovascular: HTN, Hyperlipidemia GI: GERD Musculoskeletal: Other (OSTEOMYELITIS L FOOT) Endocrine: Hypothyroidism Past Surgical History Past Surgical History UNKNOWN Family History Family History: Hypertension Social History No ALCOHOL: rare Drugs: None Lives: with Family Current Medications Current Medications Current Medications Dexmedetomidine HCl 400 mcg/ Sodium Chloride 100 ml @ 0 mls/hr CONT PRN IV PER PROTOCOL Last administered on 07/30/21at 08:13; Start 07/27/21 at 23:00 Sodium Chloride 500 ml @ 500 mls/hr 1X PRN PRN IV SEE COMMENTS; Start 07/27/21 at 23:00 Atropine Sulfate (ATROPINE 0.5mg SYRINGE) 0.5 mg PRN Q5MIN PRN IV SEE COMMENTS; Start 07/27/21 at 23:00 Sterile Water (WATER for RESP) 1,000 ml CONT PRN INH VIA VAPOTHERM DEVICE Last administered on 07/27/21at 23:50; Start 07/27/21 at 23:15 Dexamethasone Sodium Phosphate (Decadron) 10 mg DAILY IVP Last administered on 07/30/21at 08:23; Start 07/28/21 at 09:00 Piperacillin Sod/ Tazobactam Sod 3.375 gm/Sodium Chloride 50 ml @ 100 mls/hr Q6HRS IV Last administered on 07/30/21at 08:22; Start 07/28/21 at 12:00 Azithromycin (Zithromax) 250 mg DAILY PO Last administered on 07/28/21at 10:33; Start 07/28/21 at 10:00; Stop 07/29/21 at 09:01; Status DC Enoxaparin Sodium (Lovenox 40mg Syringe) 40 mg Q24H SQ Last administered on 07/28/21at 17:10; Start 07/28/21 at 17:00; Stop 07/29/21 at 08:10; Status DC Acetaminophen (Tylenol) 650 mg PRN Q4HRS PRN PO FEVER > 100.3'F; Start 07/28/21 at 09:00 Fentanyl Citrate (Fentanyl 2ml Vial) 50 mcg PRN Q3HRS PRN IVP PAIN Last administered on 07/29/21at 06:07; Start 07/28/21 at 09:00; Stop 07/30/21 at 02:18; Status DC Ondansetron HCl (Zofran) 4 mg PRN Q4HRS PRN IVP NAUSEA/VOMITING; Start 07/28/21 at 09:00 Remdesivir 100 mg/ Sodium Chloride 230 ml @ 460 mls/hr Q24H IV Last administered on 07/29/21at 17:58; Start 07/28/21 at 18:00; Stop 07/29/21 at 18:29; Status DC Lactobacillus Rhamnosus (Culturelle) 1 cap BID PO Last administered on 07/28/21at 21:08; Start 07/28/21 at 21:00; Stop 07/29/21 at 09:05; Status DC Fentanyl Citrate 30 ml @ 0 mls/hr CONT PRN IV SEE PROTOCOL Last administered on 07/29/21at 08:32; Start 07/29/21 at 07:00; Stop 07/29/21 at 12:08; Status DC Propofol 100 ml @ 0 mls/hr CONT PRN IV PER PROTOCOL Last administered on 07/29/21at 08:47; Start 07/29/21 at 07:00 Fentanyl Citrate (Fentanyl 2ml Vial) 25 mcg PRN Q1HR PRN IV SEE COMMENTS; Start 07/29/21 at 07:00 Fentanyl Citrate (Fentanyl 2ml Vial) 50 mcg PRN Q1HR PRN IV SEE COMMENTS; Start 07/29/21 at 07:00 Morphine Sulfate (Morphine Sulfate) 2 mg PRN Q1HR PRN IV SEE COMMENTS.; Start 07/29/21 at 07:00; Stop 07/29/21 at 23:30; Status DC Morphine Sulfate (Morphine Sulfate) 4 mg PRN Q1HR PRN IV SEE COMMENTS.; Start 07/29/21 at 07:00; Stop 07/29/21 at 23:30; Status DC Midazolam HCl 100 ml @ 0 mls/hr CONT PRN IV SEE PROTOCOL Last administered on 07/30/21 01:46; Start 07/29/21 at 07:00 Vecuronium [place] (Norcuron Bolus) 6 mg PRN Q6HRS PRN IV VENTILATOR COMPLIANCE Last administered on 07/29/21 08:31; Start 07/29/21 at 08:00; Stop 07/29/21 at 10:07; Status DC Succinylcholine Chloride (Anectine) 100 mg 1X ONCE IV Last administered on 07/29/21at 08:00; Start 07/29/21 at 08:00; Stop 07/29/21 at 08:01; Status DC Enoxaparin Sodium (Lovenox Per Pharmacy Treatment Dosing) 1 each PRN DAILY PRN MC SEE COMMENTS; Start 07/29/21 at 08:15 Pantoprazole Sodium (PROTONIX VIAL for IV PUSH) 40 mg DAILYAC IVP ; Start 07/30/21 at 07:30; Stop 07/29/21 at 18:41; Status DC Enoxaparin Sodium (Lovenox 120mg Syringe) 120 mg Q12HR SQ Last administered on 07/30/21 08:31; Start 07/29/21 at 09:00 Azithromycin 250 mg/Sodium Chloride 250 ml @ 250 mls/hr Q24H IV Last administered on 07/29/21 10:51; Start 07/29/21 at 10:00 Amino Acids/ Electrolytes/ Dextrose 1,000 ml @ 80 mls/hr [id number] IV Last administered on 07/29/21 09:56; Start 07/29/21 at 10:00; Stop 07/29/21 at 21:59; Status DC Info (Tpn Per Pharmacy) 1 each PRN DAILY PRN MC SEE COMMENTS Last administered on 07/29/21 11:15; Start 07/29/21 at 09:15; Stop 07/29/21 at 11:52; Status DC Vecuronium [place] (Norcuron Bolus) 6 mg PRN Q2HR PRN IV VENTILATOR COMPLIANCE Last administered on 07/29/21 17:58; Start 07/29/21 at 10:15 Norepinephrine Bitartrate 8 mg/ Dextrose 258 ml @ 23.51 mls/ hr CONT PRN IV PER PROTOCOL Last administered on 8/29/21at 08:15; Start 07/29/21 at 11:00 Sodium Acetate 70 meq/Potassium Chloride 50 meq/ Potassium Phosphate 13.6 mmol/Magnesium Sulfate 10 meq/ Calcium Gluconate 10 meq/ Multivitamins 5 ml/Zinc/Copper/ Manganese/ Selenium 1 ml/ Total Parenteral Nutrition/Amino Acids/Dextrose/ Fat Emulsion Intravenous 1,512 ml @ 63 mls/hr TPN CONT IV Last administered on 07/29/21at 22:27; Start 07/29/21 at 22:00; Stop 07/30/21 at 21:59 Info (Tpn Per Pharmacy) 1 each PRN DAILY PRN MC SEE COMMENTS; Start 07/29/21 at 11:45 Fentanyl Citrate 2,750 ml @ 0 mls/hr CONT PRN IV SEE PROTOCOL; Start 07/29/21 at 12:15; Stop 07/29/21 at 12:47; Status DC Fentanyl Citrate 55 ml @ 0 mls/hr CONT PRN IV SEE PROTOCOL Last administered on 07/29/21at 13:01; Start 07/29/21 at 12:47 Pantoprazole Sodium (PROTONIX VIAL for IV PUSH) 40 mg BID IVP Last administered on 07/30/21at 08:22; Start 07/29/21 at 21:00 Vecuronium [place] 50 mg/ Sodium Chloride 50 ml @ 5.832 mls/ hr CONT PRN IV SEE I/O RECORD; Start 07/29/21 at 19:00 Sodium Polystyrene Sulfonate (Kayexalate) 30 gm 1X ONCE PO ; Start 07/30/21 at 09:00; Stop 07/30/21 at 09:06; Status DC Lactulose (Lactulose) 20 gm ONCE ONCE PO ; Start 07/30/21 at 09:00; Stop 07/30/21 at 09:06; Status DC Active Scripts Active Silvadene (Silver Sulfadiazine) 20 Gm Cream..g. 1 Keo TP BID Apply twice a day to the burn area Percocet 5-325 Mg Tablet (Oxycodone/Acetaminophen) 1 Each Tablet 1-2 Tab PO Q4-6HRS Reported Simvastatin 10 Mg Tablet 1 Tab PO QHS Amlodipine Besylate 5 Mg Tablet 5 Mg PO DAILY Lisinopril-Hctz 20-25 Mg Tab (Lisinopril/Hydrochlorothiazide) 1 Each Tablet 1 Tab PO DAILY Levothyroxine Sodium 25 Mcg Tablet 1 Tab PO DAILY D3-50 (Cholecalciferol (Vitamin D3)) 50,000 Unit Capsule 5,000 Unit PO DAILY Pantoprazole Sodium (Pantoprazole Sodium) 40 Mg Tablet.dr 20 Mg PO DAILYAC Aspirin 81 Mg Tab.chew 81 Mg PO DAILY Allergies Allergies: Coded Allergies: cat dander (Verified Allergy, Intermediate, 07/28/21) fluticasone (Verified Allergy, Mild, Irritation, 07/28/21) ROS Review of System UNABLE TO OBTAIN Physical Exam General: No acute distress, Other HEENT: Atraumatic, PERRLA, EOMI, Other (ETT AND OGT) Lungs: Other (COARSE BILATERALLY) Heart: Regular rate Abdomen: Normal bowel sounds, Soft Extremities: No cyanosis Skin: No breakdown Neuro: Other (SEDATED) Psych/Mental Status: Other (UNABLE TO ASSESS DUE SEDATION) MUSCULOSKELETAL: No joint tenderness, No deformity, Other (1+ EDEMA) Vitals VITALS Vital Signs Date Time Temp Pulse Resp B/P (MAP) Pulse Ox O2 Delivery O2 Flow Rate FiO2 07/30/21 10:00 91 28 111/66 (81) 94 Ventilator 07/30/21 08:00 97.7 97.7 Labs Labs Laboratory Tests Test 07/29/21 05:45 07/29/21 08:45 07/29/21 18:15 07/30/21 06:15 White Blood Count 11.6 x10^3/uL (4.0-11.0) 20.0 x10^3/uL (4.0-11.0) 11.8 x10^3/uL (4.0-11.0) Red Blood Count 5.34 x10^6/uL (4.30-5.70) 5.31 x10^6/uL (4.30-5.70) 4.90 x10^6/uL (4.30-5.70) Hemoglobin 15.3 g/dL (13.0-17.5) 15.2 g/dL (13.0-17.5) 14.0 g/dL (13.0-17.5) Hematocrit 45.1 % (39.0-53.0) 46.2 % (39.0-53.0) 42.8 % (39.0-53.0) Mean Corpuscular Volume 85 fL (79-100) 87 fL (79-100) 87 fL (79-100) Mean Corpuscular Hemoglobin 29 pg (25-35) 29 pg (25-35) 29 pg (25-35) Mean Corpuscular Hemoglobin Concent 34 g/dL (31-37) 33 g/dL (31-37) 33 g/dL (31-37) Red Cell Distribution Width 14.7 % (11.5-14.5) 15.5 % (11.5-14.5) 15.7 % (11.5-14.5) Platelet Count 248 x10^3/uL (140-400) 200 x10^3/uL (140-400) 128 x10^3/uL (140-400) D-Dimer (Ninfa) > 20.00 ug/mlFEU Sodium Level 142 mmol/L (136-145) 141 mmol/L (136-145) Potassium Level 4.0 mmol/L (3.5-5.1) 5.8 mmol/L (3.5-5.1) Chloride Level 108 mmol/L (98-107) 108 mmol/L (98-107) Carbon Dioxide Level 23 mmol/L (21-32) 25 mmol/L (21-32) Anion Gap 11 (6-14) 8 (6-14) Blood Urea Nitrogen 29 mg/dL (8-26) 62 mg/dL (8-26) Creatinine 1.0 mg/dL (0.7-1.3) 3.3 mg/dL (0.7-1.3) Estimated GFR (Cockcroft-Gault) 77.9 19.6 BUN/Creatinine Ratio 29 (6-20) Glucose Level 131 mg/dL (70-99) 159 mg/dL (70-99) Calcium Level 7.8 mg/dL (8.5-10.1) 7.3 mg/dL (8.5-10.1) Total Bilirubin 0.6 mg/dL (0.2-1.0) Aspartate Amino Transf (AST/SGOT) 54 U/L (15-37) Alanine Aminotransferase (ALT/SGPT) 56 U/L (16-63) Alkaline Phosphatase 55 U/L (46-116) Total Protein 6.2 g/dL (6.4-8.2) Albumin 2.1 g/dL (3.4-5.0) Albumin/Globulin Ratio 0.5 (1.0-1.7) O2 Saturation 79 % (92-99) Arterial Blood pH 7.20 (7.35-7.45) Arterial Blood pCO2 at Patient Temp 58 mmHg (35-46) Arterial Blood pO2 at Patient Temp 54 mmHg (75-108) Arterial Blood HCO3 22 mmol/L (21-28) Arterial Blood Base Excess -7 mmol/L (-3-3) Oxyhemoglobin 78.7 % Methemoglobin 0.4 % (0.0-1.9) Carbon Monoxide, Quantitative 0.3 % (0.0-1.9) FiO2 100/vent Phosphorus Level 6.6 mg/dL (2.6-4.7) Magnesium Level 3.2 mg/dL (1.8-2.4) Test 07/30/21 08:28 O2 Saturation 94 % (92-99) Arterial Blood pH 7.27 (7.35-7.45) Arterial Blood pCO2 at Patient Temp 47 mmHg (35-46) Arterial Blood pO2 at Patient Temp 74 mmHg (75-108) Arterial Blood HCO3 21 mmol/L (21-28) Arterial Blood Base Excess -6 mmol/L (-3-3) FiO2 100 Laboratory Tests Test 07/29/21 18:15 07/30/21 06:15 07/30/21 08:28 White Blood Count 20.0 x10^3/uL (4.0-11.0) 11.8 x10^3/uL (4.0-11.0) Red Blood Count 5.31 x10^6/uL (4.30-5.70) 4.90 x10^6/uL (4.30-5.70) Hemoglobin 15.2 g/dL (13.0-17.5) 14.0 g/dL (13.0-17.5) Hematocrit 46.2 % (39.0-53.0) 42.8 % (39.0-53.0) Mean Corpuscular Volume 87 fL (79-100) 87 fL (79-100) Mean Corpuscular Hemoglobin 29 pg (25-35) 29 pg (25-35) Mean Corpuscular Hemoglobin Concent 33 g/dL (31-37) 33 g/dL (31-37) Red Cell Distribution Width 15.5 % (11.5-14.5) 15.7 % (11.5-14.5) Platelet Count 200 x10^3/uL (140-400) 128 x10^3/uL (140-400) Sodium Level 141 mmol/L (136-145) Potassium Level 5.8 mmol/L (3.5-5.1) Chloride Level 108 mmol/L (98-107) Carbon Dioxide Level 25 mmol/L (21-32) Anion Gap 8 (6-14) Blood Urea Nitrogen 62 mg/dL (8-26) Creatinine 3.3 mg/dL (0.7-1.3) Estimated GFR (Cockcroft-Gault) 19.6 Glucose Level 159 mg/dL (70-99) Calcium Level 7.3 mg/dL (8.5-10.1) Phosphorus Level 6.6 mg/dL (2.6-4.7) Magnesium Level 3.2 mg/dL (1.8-2.4) O2 Saturation 94 % (92-99) Arterial Blood pH 7.27 (7.35-7.45) Arterial Blood pCO2 at Patient Temp 47 mmHg (35-46) Arterial Blood pO2 at Patient Temp 74 mmHg (75-108) Arterial Blood HCO3 21 mmol/L (21-28) Arterial Blood Base Excess -6 mmol/L (-3-3) FiO2 100 Images Images EXAM: CHEST 1 VIEW History: Covid+, Ventilation COMPARISON: 07/29/2021 TECHNIQUE: Single portable radiograph of the chest Findings/ impression: The ET tube, feeding tube, right-sided PICC line are unchanged. Pneumomediastinum and diffuse subcutaneous emphysema in the lower neck and chest wall are again identified. Patchy airspace opacities bilateral lungs minimally improved since prior exam.. Electronically signed by: Kings Sullivan MD (07/30/2021 9:03 AM) [id number] Assessment/Plan Assessment/Plan IMP BEN-ATN HYPERKALEMIA COVID 19 PNEUMONIA ACUTE HYPOXIC HYPERCARBIC RESP FAILURE MET AND RESP ACIDOSIS WITH ACIDEMIA OBESITY UNVACCINATED FOR COVID 19 LEUCOCYTOSIS PLAN K BINDERS ANTIBIOTICS SUPPLEMENTAL O2 VENT SUPPORT STOP HIS TPN IT HAS K WILL RESUME TPN WITHOUT K THIS PM TF WHEN FEASIBLE WILL NEED HD WILL HAVE IR PLACE TEMP LINE IN AM 1ST HD TOMORROW AM CHECK URINALYSIS HAVE D/W PTS SON HE HAS GIVEN CONSENT TO PROCEED WITH HD LINE AND DIALYSIS NEEDED WILL FOLLOW PT IS CRITICALLY ILL-CCT 45 KENA MEADOWS MD Jul 30, 2021 11:08
[2021-07-30] MEDS: AZITHROMYCIN 250 MG in IV NORMAL SALINE 250ML 250 ML IV SCH (11:43)
[2021-07-30] MEDS: TPN PER PHARMACY MC PRN (13:09)
--- NOTE | 2021-07-30 13:35 | RAD ---
Supine abdomen. HISTORY: OG tube placement Supine view of the upper abdomen shows the OG tube in good position in the stomach. There is a pneumo mediastinum. There are bilateral lung infiltrates in the lung bases. There is mild bowel distention s uggesting ileus. IMPRESSION: 1. NG tube in the stomach. 2. Mild bowel distention. Electronically signed by: Jerry Cochran MD (07/30/2021 1:33 PM) [id number]
[2021-07-30] MEDS: fentaNYL HIGH DOSE PCA 55 ML IV PRN (15:56)
[2021-07-30 16:31] LABS: CREATININE 4.6 mg/dL (0.7-1.3); GFR 13.4
[2021-07-30 16:38] LABS: POTASSIUM 6.3 mmol/L (3.5-5.1)
--- NOTE | 2021-07-30 16:57 | NUR ---
Pharmacy TPN Dosing Note S: MORENA HAMPTON is a 56 year old M Currently receiving Central Continuous TPN started 07/29/21 B:Pertinent PMH: NPO Height: 5 feet, 8 inches Weight: 123.3 kg Current diet: LABS: Sodium: 141 Potassium: 5.8 Chloride: 108 Calcium: 7.3 Corrected Calcium: 8.82 Magnesium: 3.2 CO2: 23 SCr: 3.3 Glucose: 159 Albumin: 2.1 AST: 54 ALT: 56 TPN FORMULA: TPN TYPE: Central Continuous AMINO ACIDS: 60 gm DEXTROSE: 195 gm LIPIDS: gm SODIUM CHLORIDE: mEq SODIUM ACETATE: 70 mEq SODIUM PHOSPHATE: mmol POTASSIUM CHLORIDE: 50 mEq POTASSIUM ACETATE: mEq POTASSIUM PHOSPHATE: 13.6 mmol MAGNESIUM: 10 mEq CALCIUM: 10 mEq INSULIN: units MULTIPLE VITAMIN: 5 ml TRACE ELEMENTS: 1 ml(s) TPN PLAN: MAG/K/PHOS ELEVATED, REMOVE FROM TPN. PROPOFOL RUNNING AT 14.5ML/HR. NO LIPID IN TPN FOR NOW. R: Continue TPN AT 63ML/HR Will monitor electrolytes, glucose, and tolerance to TPN. KEISHA EUBANKS [facility], 07/30/21 [id number]
[2021-07-30] MEDS ORDERED: DEXTROSE 50% 25 GM / 50ML DISP.SYRIN. IV ONE (17:00)
[2021-07-30] MEDS ORDERED: INSULIN REGULAR 100 UNIT/ML 3ML VIAL. IV ONE (17:00)
[2021-07-30] MEDS ORDERED: FUROSEMIDE 100 MG/10 ML VIAL. IVP ONE (17:00)
[2021-07-30] MEDS ORDERED: CALCIUM GLUCONATE 1,000 MG in IV NORMAL SALINE 100ML 100 ML IV ONE (18:00)
[2021-07-30] MEDS ORDERED: AMINO ACID IV SCH (22:00)
[2021-07-30] MEDS ORDERED: DEXTROSE 70% IV SCH (22:00)
[2021-07-30] MEDS ORDERED: TOTAL PARENTERAL NUTRITION IV SCH (22:00)
[2021-07-30] MEDS ORDERED: [UNRECOGNIZED DRUG - OTHER] IV SCH (22:00)
[2021-07-30] MEDS ORDERED: ACETAMINOPHEN 650 MG SUPP.RECT. PR PRN (22:15)
[2021-07-31] VITALS (31 sets, daily range): BP systolic 77–136; BP diastolic 51–87
[2021-07-31] MEDS: MIDAZOLAM 100mg/100ml NS BAG 100 ML IV PRN ×2 (03:11→15:06)
[2021-07-31] MEDS: DEXMEDETOMIDINE 400 MCG in IV NORMAL SALINE 100ML 96 ML IV PRN ×5 (03:11→20:33)
[2021-07-31] MEDS: PIPERACILLIN/TAZOBACTAM 3.375 GM in IV NORMAL SALINE 50ML 50 ML IV SCH (05:41)
[2021-07-31 06:23] LABS: HEMATOCRIT 40.9 % (39.0-53.0); HEMOGLOBIN 13.2 g/dL (13.0-17.5); RED BLOOD COUNT 4.64 x10^6/uL (4.30-5.70); RED CELL DISTRIBUTION WIDTH 16.2 % (11.5-14.5); WHITE BLOOD COUNT 14.1 x10^3/uL (4.0-11.0)
[2021-07-31 06:54] LABS: ALBUMIN 1.5 g/dL (3.4-5.0); ALBUMIN/GLOBULIN RATIO 0.3 (1.0-1.7); CALCIUM 7.2 mg/dL (8.5-10.1); CREATININE 6.2 mg/dL (0.7-1.3); GFR 9.5; MAGNESIUM 3.2 mg/dL (1.8-2.4); PHOSPHORUS 7.5 mg/dL (2.6-4.7); TOTAL BILIRUBIN 0.6 mg/dL (0.2-1.0); TOTAL PROTEIN 5.8 g/dL (6.4-8.2)
[2021-07-31 07:01] LABS: POTASSIUM 6.2 mmol/L (3.5-5.1)
--- NOTE | 2021-07-31 08:22 | PN ---
DATE: 07/31/2021 SUBJECTIVE: The patient continues to be sedated, paralyzed, intubated and mechanically ventilated. He continues to be febrile, temperature this morning up to 100.5. His kidney function is steadily worsening. His creatinine now is 6.2 mg/dL and his potassium continues to be high at 6.2. He is oliguric and aggressive treatment with fluid did not really help as he seems to be in acute tubular necrosis. PHYSICAL EXAMINATION: GENERAL: When I examined him this morning, there was no pallor, jaundice, cyanosis or thyromegaly. No jugular venous distention. No limb edema. VITAL SIGNS: His heart rate was 83, blood pressure is 113/70, temperature was 100.5, respiratory rate was 28 and oxygen saturation was 97% on FiO2 of 100%. HEAD, EYES, EARS, NOSE, AND THROAT: Normocephalic, atraumatic. Has orotracheal and orogastric tube. NECK: Supple. HEART: Showed normal first heart sound, no gallop or murmur. CHEST: Shows central trachea, equal, reduced expansion, reduced air entry, vesicular breath sounds. I could not really appreciate any crepitation or rhonchi anteriorly. ABDOMEN: Distended, soft, nontender. NEUROLOGIC: He was heavily sedated. His intake over the last 24 hours was 3600, output was 1245. LABORATORY DATA: As of this morning, his white cell count was 14,000, hemoglobin 13, hematocrit 40, MCV 88 and platelet count of 128,000. Serum sodium was 141, potassium 6.2, chloride 108, bicarbonate 22, anion gap of 11, BUN 95, creatinine 6.2. Estimated GFR was 9.5. Blood sugar was 248, calcium was 7.2, phosphorus was 7.5, magnesium was 3.2. Total bilirubin and ALT normal. AST and alkaline phosphatase slightly elevated. His total protein was 5.8, albumin was 1.5. ASSESSMENT: 1. Acute hypoxic respiratory failure. 2. COVID-19 pneumonia. 3. Questionable superimposed community-acquired pneumonia. 4. Acute kidney injury with hyperkalemia. The patient's kidney function has steadily risen, his creatinine is up to 6.4. PLAN: Obviously to continue with IV antibiotic. Continue with mechanical ventilation and wean as tolerated. Continue with dexamethasone as well as remdesivir. I will add insulin sliding scale. I have already consulted Dr. Dumont and the patient will probably need temporary hemodialysis catheter and to start dialysis. The patient's overall prognosis is extremely poor. MAYCO DR: Charlie TID: [id number]
[2021-07-31 08:28] LABS: BASE EXCESS ABG -9 mmol/L (-3-3); HCO3 ABG 19 mmol/L (21-28); PCO2 ABG 49 mmHg (35-46); PO2 ABG 97 mmHg (75-108); SAT O2 ABG 97 % (92-99)
[2021-07-31 08:31] LABS: FIO2 ABG 100
[2021-07-31] MEDS ORDERED: SODIUM BICARB ADULT 8.4% 50 MEQ/50 ML DISP.SYRIN. IV ONE (08:45)
[2021-07-31] MEDS ORDERED: LIDOCAINE WITH 8.4% SOD BICARB 3 ML DISP.SYRIN. ONE (08:59)
[2021-07-31] MEDS: PANTOPRAZOLE IV PUSH 40 MG VIAL. IVP SCH ×2 (09:04→21:23)
[2021-07-31] MEDS: DEXAMETHASONE SOD PHOS 4 MG/ML VIAL IVP SCH (09:04)
--- NOTE | 2021-07-31 09:57 | PDOC ---
DATE OF SERVICE DATE: 07/31/21 TIME: 09:48 SUBJECTIVE ROS Remains Intubated OBJECTIVE Vital Signs Vital Signs Date Time Temp Pulse Resp B/P (MAP) Pulse Ox O2 Delivery O2 Flow Rate FiO2 07/31/21 08:10 97 Ventilator 07/31/21 07:00 83 28 113/70 (84) 07/31/21 04:00 100.5 100.5 07/30/21 16:32 40.0 I & 0 Intake and Output 07/31/21 07:00 Intake Total 6101.6 ml Output Total 365 ml Balance 5736.6 ml IV Total 6101.6 ml Output Urine Total 365 ml PHYSICAL EXAM Physical Exam General: Intubated HEENT: ETT AND OGT Neck Supple Lungs: decreased at bases, Intubated Heart: Regular rate Abdomen: Normal bowel sounds, Soft, Obese Extremities: No cyanosis Skin: No breakdown, No rash Neuro: sedated Psych/Mental Status Unable to assess Butler in place DIAGNOSIS/ASSESSMENT Assessment & Plan BEN-ATN, Non Oliguric, worsening renal function .Bladder scan done with no e/o retention/Butler malfunction. Initiate dialysis today . Discussed treatment plan with [facility] getting Temp HDC Hyperkalemia - , recd IV bIcrab x 1 ; Dialysis today COVID 19 Pneumonia / Unvaccinated for Covid 19 Acute Hypoxic Resp Failure Obesity Critically ill, time spent > 45 mins COMMENT/RELEVANT DATA Meds Current Medications Medications (Trade) Dose Ordered Sig/Shaheen Start Time Stop Time Status Last Admin Dose Admin Acetaminophen (Tylenol Supp) 650 mg PRN Q4HRS PRN 07/30/21 22:15 07/30/21 22:40 650 MG Acetaminophen (Tylenol) 650 mg PRN Q4HRS PRN 07/28/21 09:00 07/30/21 22:08 DC Amino Acids/ Electrolytes/ Dextrose 1,000 ml @ 80 mls/hr [id number] 07/29/21 10:00 07/29/21 21:59 DC 07/29/21 09:56 80 MLS/HR Atropine Sulfate (ATROPINE 0.5mg SYRINGE) 0.5 mg PRN Q5MIN PRN 07/27/21 23:00 Azithromycin (Zithromax) 250 mg DAILY 07/28/21 10:00 07/29/21 09:01 DC 07/28/21 10:33 250 MG Azithromycin 250 mg/Sodium Chloride 250 ml @ 250 mls/hr Q24H 07/29/21 10:00 07/30/21 11:43 250 MLS/HR Calcium Gluconate 1000 mg/Sodium Chloride 110 ml @ 220 mls/hr 1X ONCE 07/30/21 18:00 07/30/21 18:29 DC 07/30/21 17:37 220 MLS/HR Dexamethasone Sodium Phosphate (Decadron) 10 mg DAILY 07/28/21 09:00 07/31/21 09:04 8 MG Dexmedetomidine HCl 400 mcg/ Sodium Chloride 100 ml @ 0 mls/hr CONT PRN 07/27/21 23:00 07/31/21 07:18 23.4 MLS/HR Dextrose (Dextrose 50%-Water Syringe) 25 gm 1X ONCE 07/30/21 17:00 07/30/21 17:24 DC 07/30/21 17:43 25 GM Enoxaparin Sodium (Lovenox 120mg Syringe) 120 mg Q12HR 07/29/21 09:00 07/30/21 11:55 DC 07/30/21 08:31 120 MG Enoxaparin Sodium (Lovenox 40mg Syringe) 40 mg Q24H 07/28/21 17:00 07/29/21 08:10 DC 07/28/21 17:10 40 MG Enoxaparin Sodium (Lovenox Per Pharmacy Treatment Dosing) 1 each PRN DAILY PRN 07/29/21 08:15 07/30/21 11:55 DC Fentanyl Citrate 55 ml @ 0 mls/hr CONT PRN 07/29/21 12:47 07/30/21 15:56 2 MLS/HR Fentanyl Citrate (Fentanyl 2ml Vial) 50 mcg PRN Q1HR PRN 07/29/21 07:00 Furosemide (Lasix) 100 mg 1X ONCE 07/30/21 17:00 07/30/21 17:24 DC 07/30/21 17:43 100 MG Info (Tpn Per Pharmacy) 1 each PRN DAILY PRN 07/29/21 11:45 07/30/21 13:09 1 EACH Insulin Human Regular (HumuLIN R VIAL) 15 unit 1X ONCE 07/30/21 17:00 07/30/21 17:24 DC 07/30/21 18:14 15 UNIT Lactobacillus Rhamnosus (Culturelle) 1 cap BID 07/28/21 21:00 07/29/21 09:05 DC 07/28/21 21:08 1 CAP Lactulose (Lactulose) 20 gm ONCE ONCE 07/30/21 09:00 07/30/21 09:06 DC 07/30/21 11:42 20 GM Lidocaine HCl (Buffered Lidocaine 1%) 3 ml STK-MED ONCE 07/31/21 08:59 07/31/21 08:59 DC Midazolam HCl 100 ml @ 0 mls/hr CONT PRN 07/29/21 07:00 07/31/21 03:11 8 MLS/HR Morphine Sulfate (Morphine Sulfate) 4 mg PRN Q1HR PRN 07/29/21 07:00 07/29/21 23:30 DC Norepinephrine Bitartrate 8 mg/ Dextrose 258 ml @ 23.51 mls/ hr CONT PRN 07/29/21 11:00 07/30/21 08:15 4.702 MLS/HR Ondansetron HCl (Zofran) 4 mg PRN Q4HRS PRN 07/28/21 09:00 Pantoprazole Sodium (PROTONIX VIAL for IV PUSH) 40 mg BID 07/29/21 21:00 07/31/21 09:04 40 MG Piperacillin Sod/ Tazobactam Sod 3.375 gm/Sodium Chloride 50 ml @ 100 mls/hr Q6HRS 07/28/21 12:00 07/31/21 05:41 100 MLS/HR Propofol 100 ml @ 0 mls/hr CONT PRN 07/29/21 07:00 07/29/21 08:47 14.5 MLS/HR Remdesivir 100 mg/ Sodium Chloride 230 ml @ 460 mls/hr Q24H 07/28/21 18:00 07/29/21 18:29 DC 07/29/21 17:58 460 MLS/HR Sodium Polystyrene Sulfonate (Kayexalate) 30 gm 1X ONCE 07/30/21 09:00 07/30/21 09:06 DC 07/30/21 11:43 30 GM Sodium Acetate 70 meq/Calcium Gluconate 10 meq/ Multivitamins 5 ml/Zinc/Copper/ Manganese/ Selenium 1 ml/ Total Parenteral Nutrition/Amino Acids/Dextrose 1,512 ml @ 63 mls/hr TPN CONT 07/30/21 22:00 8/30/21 21:59 07/30/21 22:00 63 MLS/HR Sodium Acetate 70 meq/Potassium Chloride 50 meq/ Potassium Phosphate 13.6 mmol/Magnesium Sulfate 10 meq/ Calcium Gluconate 10 meq/ Multivitamins 5 ml/Zinc/Copper/ Manganese/ Selenium 1 ml/ Total Parenteral Nutrition/Amino Acids/Dextrose/ Fat Emulsion Intravenous 1,512 ml @ 63 mls/hr TPN CONT 07/29/21 22:00 07/30/21 21:59 DC 07/29/21 22:27 63 MLS/HR Sodium Bicarbonate (Sodium Bicarb Adult 8.4% Syr) 50 meq 1X ONCE 07/31/21 08:45 07/31/21 08:46 DC 07/31/21 09:03 50 MEQ Sodium Chloride 500 ml @ 500 mls/hr 1X PRN PRN 07/27/21 23:00 Sterile Water (WATER for RESP) 1,000 ml CONT PRN 07/27/21 23:15 07/27/21 23:50 1,000 ML Succinylcholine Chloride (Anectine) 100 mg 1X ONCE 07/29/21 08:00 07/29/21 08:01 DC 07/29/21 08:00 100 MG Vecuronium [place] 50 mg/ Sodium Chloride 50 ml @ 5.832 mls/ hr CONT PRN 07/29/21 19:00 Vecuronium [place] (Norcuron Bolus) 6 mg PRN Q2HR PRN 07/29/21 10:15 07/29/21 17:58 6 MG Lab Laboratory Tests Test 07/30/21 16:00 07/31/21 06:00 07/31/21 08:20 Sodium Level 144 mmol/L (136-145) 141 mmol/L (136-145) Potassium Level 6.3 mmol/L (3.5-5.1) 6.2 mmol/L (3.5-5.1) Chloride Level 110 mmol/L (98-107) 108 mmol/L (98-107) Carbon Dioxide Level 23 mmol/L (21-32) 22 mmol/L (21-32) Anion Gap 11 (6-14) 11 (6-14) Blood Urea Nitrogen 81 mg/dL (8-26) 95 mg/dL (8-26) Creatinine 4.6 mg/dL (0.7-1.3) 6.2 mg/dL (0.7-1.3) Estimated GFR (Cockcroft-Gault) 13.4 9.5 Glucose Level 163 mg/dL (70-99) 248 mg/dL (70-99) Calcium Level 7.0 mg/dL (8.5-10.1) 7.2 mg/dL (8.5-10.1) White Blood Count 14.1 x10^3/uL (4.0-11.0) Red Blood Count 4.64 x10^6/uL (4.30-5.70) Hemoglobin 13.2 g/dL (13.0-17.5) Hematocrit 40.9 % (39.0-53.0) Mean Corpuscular Volume 88 fL (79-100) Mean Corpuscular Hemoglobin 28 pg (25-35) Mean Corpuscular Hemoglobin Concent 32 g/dL (31-37) Red Cell Distribution Width 16.2 % (11.5-14.5) Platelet Count 128 x10^3/uL (140-400) BUN/Creatinine Ratio 15 (6-20) Phosphorus Level 7.5 mg/dL (2.6-4.7) Magnesium Level 3.2 mg/dL (1.8-2.4) Total Bilirubin 0.6 mg/dL (0.2-1.0) Aspartate Amino Transf (AST/SGOT) 57 U/L (15-37) Alanine Aminotransferase (ALT/SGPT) 41 U/L (16-63) Alkaline Phosphatase 44 U/L (46-116) Total Protein 5.8 g/dL (6.4-8.2) Albumin 1.5 g/dL (3.4-5.0) Albumin/Globulin Ratio 0.3 (1.0-1.7) Triglycerides Level 74 mg/dL (0-150) O2 Saturation 97 % (92-99) Arterial Blood pH 7.21 (7.35-7.45) Arterial Blood pCO2 at Patient Temp 49 mmHg (35-46) Arterial Blood pO2 at Patient Temp 97 mmHg (75-108) Arterial Blood HCO3 19 mmol/L (21-28) Arterial Blood Base Excess -9 mmol/L (-3-3) FiO2 100 Results All relevant outside records, renal labs, imaging studies, telemetry/EKG's were reviewed. Justicifation of Admission Dx: Justifications for Admission: Justification of Admission Dx: N/A DONNY CARLOS MD Jul 31, 2021 09:57
[2021-07-31] MEDS ORDERED: LIDOCAINE WITH 8.4% SOD BICARB 3 ML DISP.SYRIN. INJ ONE (10:15)
[2021-07-31] MEDS: AZITHROMYCIN 250 MG in IV NORMAL SALINE 250ML 250 ML IV SCH (10:43)
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
[2021-07-31] MEDS ORDERED: HEPARIN for IV BOLUS 10,000 UNIT/10 ML VIAL. IV PRN ×2 (11:15)
[2021-07-31] MEDS ORDERED: HEPARIN 25,000UTS/250ML PREMIX 250 ML IV PRN (11:15)
--- NOTE | 2021-07-31 11:28 | RAD ---
AP chest. HISTORY: Subcutaneous air, Covid positive, patient on ventilator AP view of the chest was compared with a study from one day ago. There is extensive subcutaneous emph ysema which appears worsened and makes evaluation difficult. There is extensive pneumomediastinum sim ilar to the prior study. NG tube extends into the abdomen. Dialysis catheter appears in good position . Right PICC line is unchanged. There are persistent diffuse infiltrates. A pneumothorax is not evide nt. IMPRESSION: 1. Worsening subcutaneous emphysema. 2. Extensive pneumomediastinum. 3. No change diffuse infiltrates. 4. Endotracheal tube and NG tube tube are unchanged. 5. Dialysis catheter extends to the superior vena cava. Electronically signed by: Jerry Cochran MD (07/31/2021 11:26 AM) [facility]
[2021-07-31] MEDS ORDERED: DEXTROSE 50% 25 GM / 50ML DISP.SYRIN. IV PRN (13:00)
--- NOTE | 2021-07-31 13:04 | PDOC2 ---
CONSULT Date of Consult Date of Consult DATE: 07/31/21 TIME: 12:57 Reason for Consult Reason for Consult: Low platelets and DVT Referring Physician Referring Physician: Dr. Villanueva Identification/Chief Complaint Chief Complaint COVID-19 Source Source: Chart review History of Present Illness Reason for Visit: Patient is a 56-year-old male with obesity who presented with symptomatic COVID- 19 infection. He was found to have COVID-19 pneumonia. His clinical status has deteriorated sharply in the last 4 days. He now has multiorgan failure with new BEN, acute respiratory failure that has necessitated intubation and ventilation with high PEEP and 100% FiO2, new onset thrombocytopenia, new DVT in the leg. He has been found to have decline in platelets from initial normal level to 128 on most recent CBC. This fall has occurred in the last 3 to 4 days. No prior medical history is available. Heme consultation has been requested due to following platelets and new DVT to determine need for evaluation for HIT. Patient is intubated, sedated and unable to provide any history Past Medical History Cardiovascular: HTN, Hyperlipidemia GI: GERD Musculoskeletal: Other (OSTEOMYELITIS L FOOT) Endocrine: Hypothyroidism Family History Family History: Hypertension Social History No ALCOHOL: rare Drugs: None Lives: with Family Current Medications Current Medications Current Medications Dexmedetomidine HCl 400 mcg/ Sodium Chloride 100 ml @ 0 mls/hr CONT PRN IV PER PROTOCOL Last administered on 07/31/21at 07:18; Start 07/27/21 at 23:00 Sodium Chloride 500 ml @ 500 mls/hr 1X PRN PRN IV SEE COMMENTS; Start 07/27/21 at 23:00 Atropine Sulfate (ATROPINE 0.5mg SYRINGE) 0.5 mg PRN Q5MIN PRN IV SEE COMMENTS; Start 07/27/21 at 23:00 Sterile Water (WATER for RESP) 1,000 ml CONT PRN INH VIA VAPOTHERM DEVICE Last administered on 07/27/21at 23:50; Start 07/27/21 at 23:15 Dexamethasone Sodium Phosphate (Decadron) 10 mg DAILY IVP Last administered on 07/31/21at 09:04; Start 07/28/21 at 09:00 Piperacillin Sod/ Tazobactam Sod 3.375 gm/Sodium Chloride 50 ml @ 100 mls/hr Q6HRS IV Last administered on 07/31/21at 05:41; Start 07/28/21 at 12:00; Stop 07/31/21 at 10:02; Status DC Azithromycin (Zithromax) 250 mg DAILY PO Last administered on 07/28/21at 10:33; Start 07/28/21 at 10:00; Stop 07/29/21 at 09:01; Status DC Enoxaparin Sodium (Lovenox 40mg Syringe) 40 mg Q24H SQ Last administered on 07/28/21at 17:10; Start 07/28/21 at 17:00; Stop 07/29/21 at 08:10; Status DC Acetaminophen (Tylenol) 650 mg PRN Q4HRS PRN PO FEVER > 100.3'F; Start 07/28/21 at 09:00; Stop 07/30/21 at 22:08; Status DC Fentanyl Citrate (Fentanyl 2ml Vial) 50 mcg PRN Q3HRS PRN IVP PAIN Last administered on 07/29/21at 06:07; Start 07/28/21 at 09:00; Stop 07/30/21 at 02:18; Status DC Ondansetron HCl (Zofran) 4 mg PRN Q4HRS PRN IVP NAUSEA/VOMITING; Start 07/28/21 at 09:00 Remdesivir 100 mg/ Sodium Chloride 230 ml @ 460 mls/hr Q24H IV Last administered on 07/29/21at 17:58; Start 07/28/21 at 18:00; Stop 07/29/21 at 18:29; Status DC Lactobacillus Rhamnosus (Culturelle) 1 cap BID PO Last administered on 07/28/21a t 21:08; Start 07/28/21 at 21:00; Stop 07/29/21 at 09:05; Status DC Fentanyl Citrate 30 ml @ 0 mls/hr CONT PRN IV SEE PROTOCOL Last administered on 07/29/21at 08:32; Start 07/29/21 at 07:00; Stop 07/29/21 at 12:08; Status DC Propofol 100 ml @ 0 mls/hr CONT PRN IV PER PROTOCOL Last administered on 07/29/21at 08:47; Start 07/29/21 at 07:00 Fentanyl Citrate (Fentanyl 2ml Vial) 25 mcg PRN Q1HR PRN IV SEE COMMENTS; Start 07/29/21 at 07:00 Fentanyl Citrate (Fentanyl 2ml Vial) 50 mcg PRN Q1HR PRN IV SEE COMMENTS; Start 07/29/21 at 07:00 Morphine Sulfate (Morphine Sulfate) 2 mg PRN Q1HR PRN IV SEE COMMENTS.; Start 07/29/21 at 07:00; Stop 07/29/21 at 23:30; Status DC Morphine Sulfate (Morphine Sulfate) 4 mg PRN Q1HR PRN IV SEE COMMENTS.; Start 07/29/21 at 07:00; Stop 07/29/21 at 23:30; Status DC Midazolam HCl 100 ml @ 0 mls/hr CONT PRN IV SEE PROTOCOL Last administered on 07/31/21at 03:11; Start 07/29/21 at 07:00 Vecuronium Yermo (Norcuron Bolus) 6 mg PRN Q6HRS PRN IV VENTILATOR COMPLIANCE Last administered on 07/29/21at 08:31; Start 07/29/21 at 08:00; Stop 07/29/21 at 10:07; Status DC Succinylcholine Chloride (Anectine) 100 mg 1X ONCE IV Last administered on 07/29/21at 08:00; Start 07/29/21 at 08:00; Stop 07/29/21 at 08:01; Status DC Enoxaparin Sodium (Lovenox Per Pharmacy Treatment Dosing) 1 each PRN DAILY PRN MC SEE COMMENTS; Start 07/29/21 at 08:15; Stop 07/30/21 at 11:55; Status DC Pantoprazole Sodium (PROTONIX VIAL for IV PUSH) 40 mg DAILYAC IVP ; Start 07/30/21 at 07:30; Stop 07/29/21 at 18:41; Status DC Enoxaparin Sodium (Lovenox 120mg Syringe) 120 mg Q12HR SQ Last administered on 07/30/21at 08:31; Start 07/29/21 at 09:00; Stop 07/30/21 at 11:55; Status DC Azithromycin 250 mg/Sodium Chloride 250 ml @ 250 mls/hr Q24H IV Last administered on 07/31/21at 10:43; Start 07/29/21 at 10:00 Amino Acids/ Electrolytes/ Dextrose 1,000 ml @ 80 mls/hr [id number] IV Last administered on 07/29/21at 09:56; Start 07/29/21 at 10:00; Stop 07/29/21 at 21:59; Status DC Info (Tpn Per Pharmacy) 1 each PRN DAILY PRN MC SEE COMMENTS Last administered on 07/29/21at 11:15; Start 07/29/21 at 09:15; Stop 07/29/21 at 11:52; Status DC Vecuronium Yermo (Norcuron Bolus) 6 mg PRN Q2HR PRN IV VENTILATOR COMPLIANCE Last administered on 07/29/21at 17:58; Start 07/29/21 at 10:15 Norepinephrine Bitartrate 8 mg/ Dextrose 258 ml @ 23.51 mls/ hr CONT PRN IV PER PROTOCOL Last administered on 07/30/21at 08:15; Start 07/29/21 at 11:00 Sodium Acetate 70 meq/Potassium Chloride 50 meq/ Potassium Phosphate 13.6 mmol/Magnesium Sulfate 10 meq/ Calcium Gluconate 10 meq/ Multivitamins 5 ml/Zinc/Copper/ Manganese/ Selenium 1 ml/ Total Parenteral Nutrition/Amino Acids/Dextrose/ Fat Emulsion Intravenous 1,512 ml @ 63 mls/hr TPN CONT IV Last administered on 07/29/21at 22:27; Start 07/29/21 at 22:00; Stop 07/30/21 at 21:59; Status DC Info (Tpn Per Pharmacy) 1 each PRN DAILY PRN MC SEE COMMENTS Last administered on 07/30/21at 13:09; Start 07/29/21 at 11:45 Fentanyl Citrate 2,750 ml @ 0 mls/hr CONT PRN IV SEE PROTOCOL; Start 07/29/21 at 12:15; Stop 07/29/21 at 12:47; Status DC Fentanyl Citrate 55 ml @ 0 mls/hr CONT PRN IV SEE PROTOCOL Last administered on 07/30/21at 15:56; Start 07/29/21 at 12:47 Pantoprazole Sodium (PROTONIX VIAL for IV PUSH) 40 mg BID IVP Last administered on 07/31/21at 09:04; Start 07/29/21 at 21:00 Vecuronium Yermo 50 mg/ Sodium Chloride 50 ml @ 5.832 mls/ hr CONT PRN IV SEE I/O RECORD; Start 07/29/21 at 19:00 Sodium Polystyrene Sulfonate (Kayexalate) 30 gm 1X ONCE PO Last administered on 07/30/21at 11:43; Start 07/30/21 at 09:00; Stop 07/30/21 at 09:06; Status DC Lactulose (Lactulose) 20 gm ONCE ONCE PO Last administered on 07/30/21at 11:42; Start 07/30/21 at 09:00; Stop 07/30/21 at 09:06; Status DC Sodium Acetate 70 meq/Calcium Gluconate 10 meq/ Multivitamins 5 ml/Zinc/Copper/ Manganese/ Selenium 1 ml/ Total Parenteral Nutrition/Amino Acids/Dextrose 1,512 ml @ 63 mls/hr TPN CONT IV Last administered on 07/30/21at 22:00; Start 07/30/21 at 22:00; Stop 07/31/21 at 21:59 Furosemide (Lasix) 100 mg 1X ONCE IVP Last administered on 07/30/21at 17:43; Start 07/30/21 at 17:00; Stop 07/30/21 at 17:24; Status DC Insulin Human Regular (HumuLIN R VIAL) 15 unit 1X ONCE IV Last administered on 07/30/21at 18:14; Start 07/30/21 at 17:00; Stop 07/30/21 at 17:24; Status DC Calcium Gluconate 1000 mg/Sodium Chloride 110 ml @ 220 mls/hr 1X ONCE IV Last administered on 07/30/21at 17:37; Start 07/30/21 at 18:00; Stop 07/30/21 at 18:29; Status DC Dextrose (Dextrose 50%-Water Syringe) 25 gm 1X ONCE IV Last administered on 07/30/21at 17:43; Start 07/30/21 at 17:00; Stop 07/30/21 at 17:24; Status DC Acetaminophen (Tylenol Supp) 650 mg PRN Q4HRS PRN [place] MILD PAIN / TEMP > 100.3'F Last administered on 07/30/21at 22:40; Start 07/30/21 at 22:15 Sodium Bicarbonate (Sodium Bicarb Adult 8.4% Syr) 50 meq 1X ONCE IV Last administered on 07/31/21at 09:03; Start 07/31/21 at 08:45; Stop 07/31/21 at 08:46; Status DC Lidocaine HCl (Buffered Lidocaine 1%) 3 ml STK-MED ONCE .ROUTE ; Start 07/31/21 at 08:59; Stop 07/31/21 at 08:59; Status DC Piperacillin Sod/ Tazobactam Sod 2.25 gm/Sodium Chloride 50 ml @ 100 mls/hr Q8HRS IV ; Start 07/31/21 at 14:00 Lidocaine HCl (Buffered Lidocaine 1%) 3 ml 1X ONCE INJ Last administered on 07/31/21at 10:08; Start 07/31/21 at 10:15; Stop 07/31/21 at 10:16; Status DC Heparin Sodium/ Dextrose 250 ml @ 0 mls/hr CONT PRN IV PER PROTOCOL; Start 07/31/21 at 11:15 Heparin Sodium (Porcine) (Heparin Sodium) 3,800 unit PRN Q6HRS PRN IV FOR UFH LEVEL LESS THAN 0.2; Start 07/31/21 at 11:15 Heparin Sodium (Porcine) (Heparin Sodium) 1,900 unit PRN Q6HRS PRN IV FOR UFH LEVEL 0.2 - 0.29; Start 07/31/21 at 11:15 Active Scripts Active Silvadene (Silver Sulfadiazine) 20 Gm Cream..g. 1 Keo TP BID Apply twice a day to the burn area Percocet 5-325 Mg Tablet (Oxycodone/Acetaminophen) 1 Each Tablet 1-2 Tab PO Q4-6HRS Reported Simvastatin 10 Mg Tablet 1 Tab PO QHS Amlodipine Besylate 5 Mg Tablet 5 Mg PO DAILY Lisinopril-Hctz 20-25 Mg Tab (Lisinopril/Hydrochlorothiazide) 1 Each Tablet 1 T ab PO DAILY Levothyroxine Sodium 25 Mcg Tablet 1 Tab PO DAILY D3-50 (Cholecalciferol (Vitamin D3)) 50,000 Unit Capsule 5,000 Unit PO DAILY Pantoprazole Sodium (Pantoprazole Sodium) 40 Mg Tablet.dr 20 Mg PO DAILYAC Aspirin 81 Mg Tab.chew 81 Mg PO DAILY Allergies Allergies: Coded Allergies: cat dander (Verified Allergy, Intermediate, 07/28/21) fluticasone (Verified Allergy, Mild, Irritation, 07/28/21) ROS Review of System Unable to obtain review of systems due to clinical status Physical Exam Physical Exam Intubated and sedated Neck supple No abdominal distention No bruising Vitals VITALS Vital Signs Date Time Temp Pulse Resp B/P (MAP) Pulse Ox O2 Delivery O2 Flow Rate FiO2 07/31/21 11:35 Mechanical Ventilator 07/31/21 11:29 96 07/31/21 10:00 82 28 117/81 (93) 07/31/21 08:00 99.2 99.2 07/30/21 16:32 40.0 Labs Labs Laboratory Tests Test 07/29/21 18:15 07/30/21 06:15 07/30/21 08:28 07/30/21 16:00 White Blood Count 20.0 x10^3/uL (4.0-11.0) 11.8 x10^3/uL (4.0-11.0) Red Blood Count 5.31 x10^6/uL (4.30-5.70) 4.90 x10^6/uL (4.30-5.70) Hemoglobin 15.2 g/dL (13.0-17.5) 14.0 g/dL (13.0-17.5) Hematocrit 46.2 % (39.0-53.0) 42.8 % (39.0-53.0) Mean Corpuscular Volume 87 fL (79-100) 87 fL (79-100) Mean Corpuscular Hemoglobin 29 pg (25-35) 29 pg (25-35) Mean Corpuscular Hemoglobin Concent 33 g/dL (31-37) 33 g/dL (31-37) Red Cell Distribution Width 15.5 % (11.5-14.5) 15.7 % (11.5-14.5) Platelet Count 200 x10^3/uL (140-400) 128 x10^3/uL (140-400) Sodium Level 141 mmol/L (136-145) 144 mmol/L (136-145) Potassium Level 5.8 mmol/L (3.5-5.1) 6.3 mmol/L (3.5-5.1) Chloride Level 108 mmol/L (98-107) 110 mmol/L (98-107) Carbon Dioxide Level 25 mmol/L (21-32) 23 mmol/L (21-32) Anion Gap 8 (6-14) 11 (6-14) Blood Urea Nitrogen 62 mg/dL (8-26) 81 mg/dL (8-26) Creatinine 3.3 mg/dL (0.7-1.3) 4.6 mg/dL (0.7-1.3) Estimated GFR (Cockcroft-Gault) 19.6 13.4 Glucose Level 159 mg/dL (70-99) 163 mg/dL (70-99) Calcium Level 7.3 mg/dL (8.5-10.1) 7.0 mg/dL (8.5-10.1) Phosphorus Level 6.6 mg/dL (2.6-4.7) Magnesium Level 3.2 mg/dL (1.8-2.4) O2 Saturation 94 % (92-99) Arterial Blood pH 7.27 (7.35-7.45) Arterial Blood pCO2 at Patient Temp 47 mmHg (35-46) Arterial Blood pO2 at Patient Temp 74 mmHg (75-108) Arterial Blood HCO3 21 mmol/L (21-28) Arterial Blood Base Excess -6 mmol/L (-3-3) FiO2 100 Test 07/31/21 06:00 07/31/21 08:20 07/31/21 12:56 White Blood Count 14.1 x10^3/uL (4.0-11.0) Red Blood Count 4.64 x10^6/uL (4.30-5.70) Hemoglobin 13.2 g/dL (13.0-17.5) Hematocrit 40.9 % (39.0-53.0) Mean Corpuscular Volume 88 fL (79-100) Mean Corpuscular Hemoglobin 28 pg (25-35) Mean Corpuscular Hemoglobin Concent 32 g/dL (31-37) Red Cell Distribution Width 16.2 % (11.5-14.5) Platelet Count 128 x10^3/uL (140-400) Sodium Level 141 mmol/L (136-145) Potassium Level 6.2 mmol/L (3.5-5.1) Chloride Level 108 mmol/L (98-107) Carbon Dioxide Level 22 mmol/L (21-32) Anion Gap 11 (6-14) Blood Urea Nitrogen 95 mg/dL (8-26) Creatinine 6.2 mg/dL (0.7-1.3) Estimated GFR (Cockcroft-Gault) 9.5 BUN/Creatinine Ratio 15 (6-20) Glucose Level 248 mg/dL (70-99) Calcium Level 7.2 mg/dL (8.5-10.1) Phosphorus Level 7.5 mg/dL (2.6-4.7) Magnesium Level 3.2 mg/dL (1.8-2.4) Total Bilirubin 0.6 mg/dL (0.2-1.0) Aspartate Amino Transf (AST/SGOT) 57 U/L (15-37) Alanine Aminotransferase (ALT/SGPT) 41 U/L (16-63) Alkaline Phosphatase 44 U/L (46-116) Total Protein 5.8 g/dL (6.4-8.2) Albumin 1.5 g/dL (3.4-5.0) Albumin/Globulin Ratio 0.3 (1.0-1.7) Triglycerides Level 74 mg/dL (0-150) O2 Saturation 97 % (92-99) Arterial Blood pH 7.21 (7.35-7.45) Arterial Blood pCO2 at Patient Temp 49 mmHg (35-46) Arterial Blood pO2 at Patient Temp 97 mmHg (75-108) Arterial Blood HCO3 19 mmol/L (21-28) Arterial Blood Base Excess -9 mmol/L (-3-3) FiO2 100 Glucose (Fingerstick) 245 mg/dL (70-99) Laboratory Tests Test 07/30/21 16:00 07/31/21 06:00 07/31/21 08:20 07/31/21 12:56 Sodium Level 144 mmol/L (136-145) 141 mmol/L (136-145) Potassium Level 6.3 mmol/L (3.5-5.1) 6.2 mmol/L (3.5-5.1) Chloride Level 110 mmol/L (98-107) 108 mmol/L (98-107) Carbon Dioxide Level 23 mmol/L (21-32) 22 mmol/L (21-32) Anion Gap 11 (6-14) 11 (6-14) Blood Urea Nitrogen 81 mg/dL (8-26) 95 mg/dL (8-26) Creatinine 4.6 mg/dL (0.7-1.3) 6.2 mg/dL (0.7-1.3) Estimated GFR (Cockcroft-Gault) 13.4 9.5 Glucose Level 163 mg/dL (70-99) 248 mg/dL (70-99) Calcium Level 7.0 mg/dL (8.5-10.1) 7.2 mg/dL (8.5-10.1) White Blood Count 14.1 x10^3/uL (4.0-11.0) Red Blood Count 4.64 x10^6/uL (4.30-5.70) Hemoglobin 13.2 g/dL (13.0-17.5) Hematocrit 40.9 % (39.0-53.0) Mean Corpuscular Volume 88 fL (79-100) Mean Corpuscular Hemoglobin 28 pg (25-35) Mean Corpuscular Hemoglobin Concent 32 g/dL (31-37) Red Cell Distribution Width 16.2 % (11.5-14.5) Platelet Count 128 x10^3/uL (140-400) BUN/Creatinine Ratio 15 (6-20) Phosphorus Level 7.5 mg/dL (2.6-4.7) Magnesium Level 3.2 mg/dL (1.8-2.4) Total Bilirubin 0.6 mg/dL (0.2-1.0) Aspartate Amino Transf (AST/SGOT) 57 U/L (15-37) Alanine Aminotransferase (ALT/SGPT) 41 U/L (16-63) Alkaline Phosphatase 44 U/L (46-116) Total Protein 5.8 g/dL (6.4-8.2) Albumin 1.5 g/dL (3.4-5.0) Albumin/Globulin Ratio 0.3 (1.0-1.7) Triglycerides Level 74 mg/dL (0-150) O2 Saturation 97 % (92-99) Arterial Blood pH 7.21 (7.35-7.45) Arterial Blood pCO2 at Patient Temp 49 mmHg (35-46) Arterial Blood pO2 at Patient Temp 97 mmHg (75-108) Arterial Blood HCO3 19 mmol/L (21-28) Arterial Blood Base Excess -9 mmol/L (-3-3) FiO2 100 Glucose (Fingerstick) 245 mg/dL (70-99) Assessment/Plan Assessment/Plan Assessment: Severe COVID-19 illness Acute respiratory failure Thrombocytopenia, acute Left popliteal vein DVT BEN Recommendations: -Recommend HIT antibody testing given intermediate probability for HIT -Start argatroban drip until results of HIT panel are available. Can switch back to heparin subsequently if it antibody is negative -Continue management of acute respiratory failure per pulmonology service -Management of BEN per nephrology -We will follow for results of HIT antibody testing. Please call with any additional questions or concerns Lex Salmeron MD Medical Oncology/Hematology Ph: [phone] REBECCA SALMERON MD Jul 31, 2021 13:04
[2021-07-31] MEDS: TPN PER PHARMACY MC PRN (13:17)
--- NOTE | 2021-07-31 13:18 | NUR ---
Pharmacy TPN Dosing Note S: MORENA HAMPTON is a 56 year old M Currently receiving Central Continuous TPN started 07/29/21 B:Pertinent PMH: NPO Height: 5 feet, 8 inches Weight: 126.154433 kg Current diet: LABS: Sodium: 141 Potassium: 6.2 Chloride: 108 Calcium: 7.2 Corrected Calcium: 9.20 Magnesium: 3.2 CO2: 22 SCr: 6.2 Glucose: 245-248 Albumin: 1.5 AST: 57 ALT: 41 TPN FORMULA: TPN TYPE: Central Continuous AMINO ACIDS: 105 gm DEXTROSE: 295 gm LIPIDS: 40 gm SODIUM ACETATE: 70 mEq CALCIUM: 10 mEq MULTIPLE VITAMIN: 5 ml TRACE ELEMENTS: 1 ml(s) TPN PLAN: Macros adjusted per RD recommendations. Propofol off so lipids added to TPN. Patient starting HD today. Continue electrolytes the same. SSI started. R: Change TPN as noted above. Will monitor electrolytes, glucose, and tolerance to TPN. [facility]ERRANCE RA[facility], 07/31/21 [id number]
[2021-07-31 13:28] LABS: PROTHROMBIN TIME PATIENT 19.1 SEC (11.7-14.0)
[2021-07-31] MEDS: INSULIN LISPRO 300 UNITS/3 ML VIAL. SQ SCH ×3 (13:31→23:24)
[2021-07-31] MEDS: PIPERACILLIN/TAZOBACTAM 2.25 GM in IV NORMAL SALINE 50ML 50 ML IV SCH ×2 (13:37→21:34)
--- NOTE | 2021-07-31 15:02 | RAD ---
07/31/2021 Procedure: Temporary hemodialysis catheter placement Sterility: All elements of maximal sterile barrier technique including the use of a cap, mask, steril e gown, sterile gloves, large sterile sheet, appropriate hand hygiene, and 2% chlorhexidine for cutan eous antisepsis (or acceptable alternative antiseptic per current guidelines) were followed for this procedure. Consent: The procedure was explained in its entirety to the patient or the patients designated repres entative by a member of the treatment team, including a discussion of the risks, benefits and commonl y accepted alternatives to the procedure, as well as the expected consequences of no therapy whatsoev er. Discussion of the risks included, but was not limited to, those that are most frequent and thos e that are rare but possibly severe or life-threatening, as well as the possibility of unforeseen com plications. Technique and Findings: Following informed consent, the patient was prepped and draped in the usual s terile fashion. Ultrasound interrogation of the right neck revealed patency and compressibility of t he right internal jugular vein. A 21-gauge micropuncture was then used to gain access to this vein u nder ultrasound guidance. A hard copy ultrasound image was recorded. A guidewire was advanced centra lly over which, following dilatation, a temporary dialysis catheter was placed. The new catheter wa s found to flush and aspirate normally. The catheter was secured in place. Follow-up chest radiograph demonstrates the catheter to be in acceptable position. Sterile dressings were applied. No immediate complications were identified. IMPRESSION: Placement of a right internal jugular temporary dialysis catheter Electronically signed by: Erick Marin MD (07/31/2021 3:00 PM) [id number]
--- NOTE | 2021-07-31 15:16 | NUR ---
SS following up with discharge planning. SS reviewed pt chart and discussed with pt RN. Pt is currently on the vent at 100%. COVID19 positive. Peep 13 and tidal volume 450. Not stable. Pt on Versed, Fentanyl, Precedex, TPN, Heparin, IV Zosyn, and IV Azithromycin. Pt's family requesting transfer to . SS contacted transfer team, , and made request. SS spoke with Graciela, in the transfer team. Pt denied for transfer. reported that they are at capacity and pt is not stable for transfer. reported that pt's family can call Patient Relations if they have questions. RN notified. SS will continue to follow for discharge planning.
[2021-07-31] MEDS ORDERED: DIALYSIS PATIENT. MC PRN ×2 (16:15)
[2021-07-31] MEDS ORDERED: 0.9 % SODIUM CHLORIDE 10 ML DISP.SYRIN. IV PRN ×2 (16:15)
[2021-07-31] MEDS ORDERED: ALBUMIN HUMAN 25% 200 ML IV PRN (16:15)
[2021-07-31] MEDS ORDERED: IV NORMAL SALINE 1000ML BAG 1,000 ML IV PRN ×2 (16:15)
[2021-07-31] MEDS ORDERED: ARGATROBAN PER PHARMACY. MC PRN (16:30)
[2021-07-31] MEDS: ARGATROBAN 50 MG in IV NORMAL SALINE 50ML 50 ML IV PRN ×2 (16:49→21:24)
[2021-07-31] MEDS: VECURONIUM BOLUS 10 MG VIAL. IV PRN (18:06)
[2021-07-31] MEDS: NOREPINEPHRINE VIAL 8 MG in IV DEXTROSE 5% 250 ML IV PRN (18:09)
[2021-07-31] MEDS: fentaNYL HIGH DOSE PCA 55 ML IV PRN (18:11)
[2021-07-31] MEDS ORDERED: AMINO ACID IV SCH (22:00)
[2021-07-31] MEDS ORDERED: TOTAL PARENTERAL NUTRITION IV SCH (22:00)
[2021-07-31] MEDS ORDERED: [UNRECOGNIZED DRUG - OTHER] IV SCH (22:00)
[2021-07-31] MEDS ORDERED: DEXTROSE 70% IV SCH (22:00)
[2021-08-01] VITALS (25 sets, daily range): BP systolic 82–136; BP diastolic 54–97
[2021-08-01] MEDS: DEXMEDETOMIDINE 400 MCG in IV NORMAL SALINE 100ML 96 ML IV PRN ×6 (01:24→22:00)
[2021-08-01] MEDS: PIPERACILLIN/TAZOBACTAM 2.25 GM in IV NORMAL SALINE 50ML 50 ML IV SCH ×3 (05:36→22:14)
[2021-08-01] MEDS: MIDAZOLAM 100mg/100ml NS BAG 100 ML IV PRN ×2 (05:36→17:37)
[2021-08-01] MEDS: INSULIN LISPRO 300 UNITS/3 ML VIAL. SQ SCH ×4 (06:04→17:51)
[2021-08-01 06:36] LABS: HEMATOCRIT 37.9 % (39.0-53.0); HEMOGLOBIN 12.3 g/dL (13.0-17.5); RED BLOOD COUNT 4.32 x10^6/uL (4.30-5.70); WHITE BLOOD COUNT 13.4 x10^3/uL (4.0-11.0)
[2021-08-01 06:48] LABS: ALBUMIN 1.4 g/dL (3.4-5.0); ALBUMIN/GLOBULIN RATIO 0.4 (1.0-1.7); CALCIUM 7.5 mg/dL (8.5-10.1); GFR 9.8; TOTAL BILIRUBIN 0.4 mg/dL (0.2-1.0); TOTAL PROTEIN 5.4 g/dL (6.4-8.2)
[2021-08-01 07:08] LABS: MAGNESIUM 2.8 mg/dL (1.8-2.4)
[2021-08-01] MEDS: ARGATROBAN 50 MG in IV NORMAL SALINE 50ML 50 ML IV PRN ×2 (07:46→21:59)
[2021-08-01 07:49] LABS: BASE EXCESS ABG -7 mmol/L (-3-3); HCO3 ABG 22 mmol/L (21-28); PO2 ABG 65 mmHg (75-108); SAT O2 ABG 90 % (92-99)
[2021-08-01 08:07] LABS: FIO2 ABG 100; PCO2 ABG 61 mmHg (35-46)
[2021-08-01] MEDS: DEXAMETHASONE SOD PHOS 4 MG/ML VIAL IVP SCH (08:38)
[2021-08-01] MEDS: PANTOPRAZOLE IV PUSH 40 MG VIAL. IVP SCH ×2 (08:38→21:22)
--- NOTE | 2021-08-01 09:00 | PDOC ---
DATE OF SERVICE DATE: 08/01/21 TIME: 08:57 SUBJECTIVE ROS Remains Intubated OBJECTIVE Vital Signs Vital Signs Date Time Temp Pulse Resp B/P (MAP) Pulse Ox O2 Delivery O2 Flow Rate FiO2 08/01/21 07:37 91 Ventilator 08/01/21 06:00 68 28 99/63 (75) 08/01/21 04:00 98.4 98.4 I & 0 Intake and Output 08/01/21 07:00 Intake Total 3247.64 ml Output Total 117 ml Balance 3130.64 ml IV Total 3247.64 ml Output Urine Total 17 ml Gastric Drainage Total 100 ml PHYSICAL EXAM Physical Exam General: Intubated HEENT: ETT AND OGT Neck Supple Lungs: decreased at bases, Intubated Heart: Regular rate Abdomen: Normal bowel sounds, Soft, Obese Extremities: No cyanosis Skin: No breakdown, No rash Neuro: sedated Psych/Mental Status Unable to assess Butler in place DIAGNOSIS/ASSESSMENT Assessment & Plan BEN-ATN,OliigoAnuric , Initiated dialysis 07/31 , Dialysis today - 2 nd treatment , discussed treatment plan with [facility] Access Temp HDC Hyperkalemia - Resolved COVID 19 Pneumonia / Unvaccinated for Covid 19 Acute Hypoxic Resp Failure intubated/MV Pneumomediastinum, with increasing subcutaneous emphysema in the anterior chest and neck. No evidence of pneumothorax. No need for chest tubes per Pulm . Thrombocytopenia likely secondary to sepsis. Obesity COMMENT/RELEVANT DATA Meds Current Medications Medications (Trade) Dose Ordered Sig/Shaheen Start Time Stop Time Status Last Admin Dose Admin Acetaminophen (Tylenol Supp) 650 mg PRN Q4HRS PRN 07/30/21 22:15 07/30/21 22:40 650 MG Acetaminophen (Tylenol) 650 mg PRN Q4HRS PRN 07/28/21 09:00 07/30/21 22:08 DC Albumin Human 200 ml @ 200 mls/hr 1X PRN PRN 07/31/21 16:15 07/31/21 22:14 DC Amino Acids/ Electrolytes/ Dextrose 1,000 ml @ 80 mls/hr [id number] 07/29/21 10:00 07/29/21 21:59 DC 07/29/21 09:56 80 MLS/HR Argatroban (Argatroban Per Pharmacy) 1 each PRN DAILY PRN 07/31/21 16:30 Argatroban 50 mg/ Sodium Chloride 50 ml @ 0 mls/hr CONT PRN 07/31/21 16:30 08/01/21 07:46 5.7 MLS/HR Atropine Sulfate (ATROPINE 0.5mg SYRINGE) 0.5 mg PRN Q5MIN PRN 07/27/21 23:00 Azithromycin (Zithromax) 250 mg DAILY 07/28/21 10:00 07/29/21 09:01 DC 07/28/21 10:33 250 MG Azithromycin 250 mg/Sodium Chloride 250 ml @ 250 mls/hr Q24H 07/29/21 10:00 07/31/21 10:43 250 MLS/HR Calcium Gluconate 1000 mg/Sodium Chloride 110 ml @ 220 mls/hr 1X ONCE 07/30/21 18:00 07/30/21 18:29 DC 07/30/21 17:37 220 MLS/HR Dexamethasone Sodium Phosphate (Decadron) 10 mg DAILY 07/28/21 09:00 08/01/21 08:38 10 MG Dexmedetomidine HCl 400 mcg/ Sodium Chloride 100 ml @ 0 mls/hr CONT PRN 07/27/21 23:00 08/01/21 05:35 23.42 MLS/HR Dextrose (Dextrose 50%-Water Syringe) 12.5 gm PRN Q15MIN PRN 07/31/21 13:00 Enoxaparin Sodium (Lovenox 120mg Syringe) 120 mg Q12HR 07/29/21 09:00 07/30/21 11:55 DC 07/30/21 08:31 120 MG Enoxaparin Sodium (Lovenox 40mg Syringe) 40 mg Q24H 07/28/21 17:00 07/29/21 08:10 DC 07/28/21 17:10 40 MG Enoxaparin Sodium (Lovenox Per Pharmacy Treatment Dosing) 1 each PRN DAILY PRN 07/29/21 08:15 07/30/21 11:55 DC Fentanyl Citrate 55 ml @ 0 mls/hr CONT PRN 07/29/21 12:47 07/31/21 18:11 2 MLS/HR Fentanyl Citrate (Fentanyl 2ml Vial) 50 mcg PRN Q1HR PRN 07/29/21 07:00 Furosemide (Lasix) 100 mg 1X ONCE 07/30/21 17:00 07/30/21 17:24 DC 07/30/21 17:43 100 MG Heparin Sodium (Porcine) (Heparin Sodium) 1,900 unit PRN Q6HRS PRN 07/31/21 11:15 07/31/21 16:27 DC Heparin Sodium/ Dextrose 250 ml @ 0 mls/hr CONT PRN 07/31/21 11:15 07/31/21 16:28 DC 07/31/21 16:22 20.3 MLS/HR Info (PHARMACY MONITORING -- do not chart) 1 each PRN DAILY PRN 07/31/21 16:15 Info (Tpn Per Pharmacy) 1 each PRN DAILY PRN 07/29/21 11:45 07/31/21 13:17 1 EACH Insulin Human Lispro (HumaLOG) 0-5 UNITS Q6HRS 07/31/21 13:00 08/01/21 06:04 4 UNITS Insulin Human Regular (HumuLIN R VIAL) 15 unit 1X ONCE 07/30/21 17:00 07/30/21 17:24 DC 07/30/21 18:14 15 UNIT Lactobacillus Rhamnosus (Culturelle) 1 cap BID 07/28/21 21:00 07/29/21 09:05 DC 07/28/21 21:08 1 CAP Lactulose (Lactulose) 20 gm ONCE ONCE 07/30/21 09:00 07/30/21 09:06 DC 07/30/21 11:42 20 GM Lidocaine HCl (Buffered Lidocaine 1%) 3 ml 1X ONCE 07/31/21 10:15 07/31/21 10:16 DC 07/31/21 10:08 3 ML Midazolam HCl 100 ml @ 0 mls/hr CONT PRN 07/29/21 07:00 08/01/21 05:36 8 MLS/HR Morphine Sulfate (Morphine Sulfate) 4 mg PRN Q1HR PRN 07/29/21 07:00 07/29/21 23:30 DC Norepinephrine Bitartrate 8 mg/ Dextrose 258 ml @ 23.51 mls/ hr CONT PRN 07/29/21 11:00 07/31/21 18:09 11 MLS/HR Ondansetron HCl (Zofran) 4 mg PRN Q4HRS PRN 07/28/21 09:00 Pantoprazole Sodium (PROTONIX VIAL for IV PUSH) 40 mg BID 07/29/21 21:00 08/01/21 08:38 40 MG Piperacillin Sod/ Tazobactam Sod 2.25 gm/Sodium Chloride 50 ml @ 100 mls/hr Q8HRS 07/31/21 14:00 08/01/21 05:36 100 MLS/HR Piperacillin Sod/ Tazobactam Sod 3.375 gm/Sodium Chloride 50 ml @ 100 mls/hr Q6HRS 07/28/21 12:00 07/31/21 10:02 DC 07/31/21 05:41 100 MLS/HR Propofol 100 ml @ 0 mls/hr CONT PRN 07/29/21 07:00 07/29/21 08:47 14.5 MLS/HR Remdesivir 100 mg/ Sodium Chloride 230 ml @ 460 mls/hr Q24H 07/28/21 18:00 07/29/21 18:29 DC 07/29/21 17:58 460 MLS/HR Sodium Polystyrene Sulfonate (Kayexalate) 30 gm 1X ONCE 07/30/21 09:00 07/30/21 09:06 DC 07/30/21 11:43 30 GM Sodium Acetate 70 meq/Calcium Gluconate 10 meq/ Multivitamins 5 ml/Zinc/Copper/ Manganese/ Selenium 1 ml/ Total Parenteral Nutrition/Amino Acids/Dextrose 1,512 ml @ 63 mls/hr TPN CONT 07/30/21 22:00 07/31/21 21:59 DC 07/30/21 22:00 63 MLS/HR Sodium Acetate 70 meq/Calcium Gluconate 10 meq/ Multivitamins 5 ml/Zinc/Copper/ Manganese/ Selenium 1 ml/ Total Parenteral Nutrition/Amino Acids/Dextrose/ Fat Emulsion Intravenous 1,512 ml @ 63 mls/hr TPN CONT 07/31/21 22:00 08/01/21 21:59 07/31/21 21:34 63 MLS/HR Sodium Acetate 70 meq/Potassium Chloride 50 meq/ Potassium Phosphate 13.6 mmol/Magnesium Sulfate 10 meq/ Calcium Gluconate 10 meq/ Multivitamins 5 ml/Zinc/Copper/ Manganese/ Selenium 1 ml/ Total Parenteral Nutrition/Amino Acids/Dextrose/ Fat Emulsion Intravenous 1,512 ml @ 63 mls/hr TPN CONT 07/29/21 22:00 07/30/21 21:59 DC 07/29/21 22:27 63 MLS/HR Sodium Bicarbonate (Sodium Bicarb Adult 8.4% Syr) 50 meq 1X ONCE 07/31/21 08:45 07/31/21 08:46 DC 07/31/21 09:03 50 MEQ Sodium Chloride 1,000 ml @ 400 mls/hr Q2H30M PRN 07/31/21 16:15 08/01/21 04:14 DC Sodium Chloride (Normal Saline Flush) 10 ml 1X PRN PRN 07/31/21 16:15 08/01/21 16:14 Sterile Water (WATER for RESP) 1,000 ml CONT PRN 07/27/21 23:15 07/27/21 23:50 1,000 ML Succinylcholine Chloride (Anectine) 100 mg 1X ONCE 07/29/21 08:00 07/29/21 08:01 DC 07/29/21 08:00 100 MG Vecuronium [place] 50 mg/ Sodium Chloride 50 ml @ 5.832 mls/ hr CONT PRN 07/29/21 19:00 Vecuronium [place] (Norcuron Bolus) 6 mg PRN Q2HR PRN 07/29/21 10:15 07/31/21 18:06 6 MG Lab Laboratory Tests Test 07/31/21 12:56 07/31/21 13:06 07/31/21 17:03 07/31/21 19:10 Glucose (Fingerstick) 245 mg/dL (70-99) 204 mg/dL (70-99) Prothrombin Time 19.1 SEC (11.7-14.0) Prothromb Time International Ratio 1.6 (0.8-1.1) Activated Partial Thromboplast Time 45 SEC (24-38) 88 SEC (24-38) Test 07/31/21 23:15 07/31/21 23:21 08/01/21 04:44 08/01/21 05:55 Activated Partial Thromboplast Time 103 SEC (24-38) 99 SEC (24-38) Glucose (Fingerstick) 241 mg/dL (70-99) White Blood Count 13.4 x10^3/uL (4.0-11.0) Red Blood Count 4.32 x10^6/uL (4.30-5.70) Hemoglobin 12.3 g/dL (13.0-17.5) Hematocrit 37.9 % (39.0-53.0) Mean Corpuscular Volume 88 fL (79-100) Mean Corpuscular Hemoglobin 29 pg (25-35) Mean Corpuscular Hemoglobin Concent 33 g/dL (31-37) Red Cell Distribution Width 16.0 % (11.5-14.5) Platelet Count 117 x10^3/uL (140-400) Sodium Level 137 mmol/L (136-145) Potassium Level 5.0 mmol/L (3.5-5.1) Chloride Level 102 mmol/L (98-107) Carbon Dioxide Level 27 mmol/L (21-32) Anion Gap 8 (6-14) Blood Urea Nitrogen 79 mg/dL (8-26) Creatinine 6.0 mg/dL (0.7-1.3) Estimated GFR (Cockcroft-Gault) 9.8 BUN/Creatinine Ratio 13 (6-20) Glucose Level 309 mg/dL (70-99) Calcium Level 7.5 mg/dL (8.5-10.1) Phosphorus Level 8.0 mg/dL (2.6-4.7) Magnesium Level 2.8 mg/dL (1.8-2.4) Total Bilirubin 0.4 mg/dL (0.2-1.0) Aspartate Amino Transf (AST/SGOT) 41 U/L (15-37) Alanine Aminotransferase (ALT/SGPT) 33 U/L (16-63) Alkaline Phosphatase 37 U/L (46-116) Total Protein 5.4 g/dL (6.4-8.2) Albumin 1.4 g/dL (3.4-5.0) Albumin/Globulin Ratio 0.4 (1.0-1.7) Test 08/01/21 06:02 08/01/21 07:44 Glucose (Fingerstick) 297 mg/dL (70-99) O2 Saturation 90 % (92-99) Arterial Blood pH 7.19 (7.35-7.45) Arterial Blood pCO2 at Patient Temp 61 mmHg (35-46) Arterial Blood pO2 at Patient Temp 65 mmHg (75-108) Arterial Blood HCO3 22 mmol/L (21-28) Arterial Blood Base Excess -7 mmol/L (-3-3) FiO2 100 Results All relevant outside records, renal labs, imaging studies, telemetry/EKG's were reviewed. Justicifation of Admission Dx: Justifications for Admission: Justification of Admission Dx: N/A DONNY CARLOS MD Aug 01, 2021 08:59
[2021-08-01] MEDS ORDERED: DEXTROSE 50% 25 GM / 50ML DISP.SYRIN. IV PRN (09:15)
--- NOTE | 2021-08-01 09:37 | NUR ---
SS following up with discharge planning. SS reviewed pt chart and discussed with pt RN. Pt is currently on the vent at 100%. COVID19 positive. Not stable. Pt on Versed, Fentanyl, Precedex, TPN, Argatroban, IV Zosyn, and IV Azithromycin. Pt's family requesting transfer to . Pt's family requesting SS contact daily and check for bed availability. SS contacted transfer team, , and made request. SS spoke with Jacki in the transfer team. Pt denied for transfer. [facility] reported that they are at capacity and pt is not stable for transfer. reported that pt's family can call Patient Relations if they have questions. RN notified. SS will continue to follow for discharge planning.
[2021-08-01] MEDS: AZITHROMYCIN 250 MG in IV NORMAL SALINE 250ML 250 ML IV SCH (09:54)
[2021-08-01] MEDS: TPN PER PHARMACY MC PRN (09:57)
--- NOTE | 2021-08-01 10:10 | NUR ---
Pharmacy TPN Dosing Note S: MORENA HAMPTON is a 56 year old M Currently receiving Central Continuous TPN started 07/29/21 B:Pertinent PMH: NPO Height: 5 feet, 8 inches Weight: 128.7 kg Current diet: LABS: Sodium: 137 Potassium: 5 Chloride: 102 Calcium: 7.5 Corrected Calcium: 9.58 Magnesium: 2.8 CO2: 27 SCr: 6 Glucose: 204-309 Albumin: 1.4 AST: 41 ALT: 33 TPN FORMULA: TPN TYPE: Central Continuous AMINO ACIDS: 105 gm DEXTROSE: 295 gm LIPIDS: 40 gm SODIUM CHLORIDE: mEq SODIUM ACETATE: 70 mEq SODIUM PHOSPHATE: mmol POTASSIUM CHLORIDE: -- mEq POTASSIUM ACETATE: mEq POTASSIUM PHOSPHATE: -- mmol MAGNESIUM: -- mEq CALCIUM: 10 mEq INSULIN: units MULTIPLE VITAMIN: 5 ml TRACE ELEMENTS: 1 ml(s) TPN PLAN: Elevated phos and mag today (already none in TPN) Continue edna formula. R: Continue TPN Will monitor electrolytes, glucose, and tolerance to TPN. Anya King RPH, 08/01/21 1010
--- NOTE | 2021-08-01 10:16 | PN ---
DATE: 08/01/2021 SUBJECTIVE: The patient has continued to be sedated, paralyzed, intubated and mechanically ventilated. He is off the Levophed. He was dialyzed yesterday and tolerated dialysis very well. He is scheduled to have more hemodialysis today. His platelets continued to decline from 327 and today it was 117. We held his Lovenox and he was seen by the online advertising analyst and he is now on argatroban. PHYSICAL EXAMINATION: GENERAL: On examining him, he looked pale, but no jaundice or cyanosis, no lymphadenopathy, no thyromegaly, no jugular venous distention. No limb edema. VITAL SIGNS: His heart rate was 68, blood pressure was 99/63, temperature 98.4, respiratory rate 28, and oxygen saturation was 91% on FiO2 of 100%. HEAD, EYES, EARS, NOSE, EYES, EARS, NOSE, AND THROAT: Normocephalic, atraumatic. Has orotracheal and orogastric tube. NECK: Supple. HEART: Normal first and second heart sounds, no gallop or murmur. CHEST: Shows central trachea, equal bilateral chest expansion, air entry, vesicular breath sounds. I could not appreciate any crepitation or rhonchi anteriorly. He has extensive crepitus due to subcutaneous emphysema. ABDOMEN: Distended, soft, nontender. NEUROLOGIC: He is heavily sedated. His intake over the last 24 hours was 6100. Output was 365. LABORATORY DATA: As of this morning, his white cell count was 13,400, hemoglobin 12.3, hematocrit 37, MCV 88 and platelet count of 117,000. His chemistry showed a serum sodium 137, potassium 5, chloride 102, bicarbonate 27, anion gap of 8, BUN 79, creatinine 6, estimated GFR was 9.8 mL per minute. His glucose was 309, calcium was 7.5. Total bilirubin, AST, ALT, alkaline phosphatase were normal. Total protein was 5.4, albumin was 1.4. His arterial blood gas this morning showed a pH of 7.19, pCO2 of 61, pO2 of 65, bicarbonate 22 and oxygen saturation was 90% on FiO2 of 100%. ASSESSMENT: 1. Acute hypoxic respiratory failure that required intubation, mechanical ventilation. 2. COVID-19 pneumonia/ARDS. 3. Morbid obesity and possible obstructive sleep apnea. 4. Pneumomediastinum with extensive subcutaneous emphysema with no evidence of pneumothorax. 5. Acute kidney injury requiring hemodialysis. 6. Metabolic acidosis. 7. The patient has nonocclusive thrombus in the left popliteal vein for which he is now on dabigatran. 8. Thrombocytopenia for which he was seen by the online advertising analyst and his Lovenox was discontinued and heparin-induced antibody was sent and he was switched to argatroban drip. PLAN: Obviously to continue with mechanical ventilation. Continue with antibiotic. Continue to monitor his blood sugar and adjust insulin as needed. Continue with GI prophylaxis. Continue with DVT prophylaxis. ORIN DR: Charlie TID: [id number]
--- NOTE | 2021-08-01 10:43 | PDOC ---
PULMONARY PROGRESS NOTES DATE: 08/01/21 TIME: 10:39 Subjective on vent peep 13 fio2 100% on fentanyl versed precedex vec prn febrile Subcutaneous emphysema unchanged. No evidence of pneumothorax. Vitals Vital Signs Date Time Temp Pulse Resp B/P (MAP) Pulse Ox O2 Delivery O2 Flow Rate FiO2 08/01/21 09:32 93 Ventilator 08/01/21 06:00 68 28 99/63 (75) 08/01/21 04:00 98.4 98.4 Comments ros unable to obtain NCAT neck sub cut emphysema rrr no accessory muscle use obese no edema no rash Labs Laboratory Tests Test 07/30/21 16:00 07/31/21 06:00 07/31/21 08:20 07/31/21 12:56 Sodium Level 144 mmol/L (136-145) 141 mmol/L (136-145) Potassium Level 6.3 mmol/L (3.5-5.1) 6.2 mmol/L (3.5-5.1) Chloride Level 110 mmol/L (98-107) 108 mmol/L (98-107) Carbon Dioxide Level 23 mmol/L (21-32) 22 mmol/L (21-32) Anion Gap 11 (6-14) 11 (6-14) Blood Urea Nitrogen 81 mg/dL (8-26) 95 mg/dL (8-26) Creatinine 4.6 mg/dL (0.7-1.3) 6.2 mg/dL (0.7-1.3) Estimated GFR (Cockcroft-Gault) 13.4 9.5 Glucose Level 163 mg/dL (70-99) 248 mg/dL (70-99) Calcium Level 7.0 mg/dL (8.5-10.1) 7.2 mg/dL (8.5-10.1) White Blood Count 14.1 x10^3/uL (4.0-11.0) Red Blood Count 4.64 x10^6/uL (4.30-5.70) Hemoglobin 13.2 g/dL (13.0-17.5) Hematocrit 40.9 % (39.0-53.0) Mean Corpuscular Volume 88 fL (79-100) Mean Corpuscular Hemoglobin 28 pg (25-35) Mean Corpuscular Hemoglobin Concent 32 g/dL (31-37) Red Cell Distribution Width 16.2 % (11.5-14.5) Platelet Count 128 x10^3/uL (140-400) BUN/Creatinine Ratio 15 (6-20) Phosphorus Level 7.5 mg/dL (2.6-4.7) Magnesium Level 3.2 mg/dL (1.8-2.4) Total Bilirubin 0.6 mg/dL (0.2-1.0) Aspartate Amino Transf (AST/SGOT) 57 U/L (15-37) Alanine Aminotransferase (ALT/SGPT) 41 U/L (16-63) Alkaline Phosphatase 44 U/L (46-116) Total Protein 5.8 g/dL (6.4-8.2) Albumin 1.5 g/dL (3.4-5.0) Albumin/Globulin Ratio 0.3 (1.0-1.7) Triglycerides Level 74 mg/dL (0-150) Hepatitis B Surface Antigen Nonreactive (Nonreactive) Hepatitis B Surface Antibody Nonreactive O2 Saturation 97 % (92-99) Arterial Blood pH 7.21 (7.35-7.45) Arterial Blood pCO2 at Patient Temp 49 mmHg (35-46) Arterial Blood pO2 at Patient Temp 97 mmHg (75-108) Arterial Blood HCO3 19 mmol/L (21-28) Arterial Blood Base Excess -9 mmol/L (-3-3) FiO2 100 Glucose (Fingerstick) 245 mg/dL (70-99) Test 07/31/21 13:06 07/31/21 17:03 07/31/21 19:10 07/31/21 23:15 Prothrombin Time 19.1 SEC (11.7-14.0) Prothromb Time International Ratio 1.6 (0.8-1.1) Activated Partial Thromboplast Time 45 SEC (24-38) 88 SEC (24-38) 103 SEC (24-38) Glucose (Fingerstick) 204 mg/dL (70-99) Test 07/31/21 23:21 08/01/21 04:44 08/01/21 05:55 08/01/21 06:02 Glucose (Fingerstick) 241 mg/dL (70-99) 297 mg/dL (70-99) Activated Partial Thromboplast Time 99 SEC (24-38) White Blood Count 13.4 x10^3/uL (4.0-11.0) Red Blood Count 4.32 x10^6/uL (4.30-5.70) Hemoglobin 12.3 g/dL (13.0-17.5) Hematocrit 37.9 % (39.0-53.0) Mean Corpuscular Volume 88 fL (79-100) Mean Corpuscular Hemoglobin 29 pg (25-35) Mean Corpuscular Hemoglobin Concent 33 g/dL (31-37) Red Cell Distribution Width 16.0 % (11.5-14.5) Platelet Count 117 x10^3/uL (140-400) Sodium Level 137 mmol/L (136-145) Potassium Level 5.0 mmol/L (3.5-5.1) Chloride Level 102 mmol/L (98-107) Carbon Dioxide Level 27 mmol/L (21-32) Anion Gap 8 (6-14) Blood Urea Nitrogen 79 mg/dL (8-26) Creatinine 6.0 mg/dL (0.7-1.3) Estimated GFR (Cockcroft-Gault) 9.8 BUN/Creatinine Ratio 13 (6-20) Glucose Level 309 mg/dL (70-99) Calcium Level 7.5 mg/dL (8.5-10.1) Phosphorus Level 8.0 mg/dL (2.6-4.7) Magnesium Level 2.8 mg/dL (1.8-2.4) Total Bilirubin 0.4 mg/dL (0.2-1.0) Aspartate Amino Transf (AST/SGOT) 41 U/L (15-37) Alanine Aminotransferase (ALT/SGPT) 33 U/L (16-63) Alkaline Phosphatase 37 U/L (46-116) Total Protein 5.4 g/dL (6.4-8.2) Albumin 1.4 g/dL (3.4-5.0) Albumin/Globulin Ratio 0.4 (1.0-1.7) Test 08/01/21 07:44 08/01/21 08:45 O2 Saturation 90 % (92-99) Arterial Blood pH 7.19 (7.35-7.45) Arterial Blood pCO2 at Patient Temp 61 mmHg (35-46) Arterial Blood pO2 at Patient Temp 65 mmHg (75-108) Arterial Blood HCO3 22 mmol/L (21-28) Arterial Blood Base Excess -7 mmol/L (-3-3) FiO2 100 Activated Partial Thromboplast Time > 150 SEC (24-38) Laboratory Tests Test 07/31/21 12:56 07/31/21 13:06 07/31/21 17:03 07/31/21 19:10 Glucose (Fingerstick) 245 mg/dL (70-99) 204 mg/dL (70-99) Prothrombin Time 19.1 SEC (11.7-14.0) Prothromb Time International Ratio 1.6 (0.8-1.1) Activated Partial Thromboplast Time 45 SEC (24-38) 88 SEC (24-38) Test 07/31/21 23:15 07/31/21 23:21 08/01/21 04:44 08/01/21 05:55 Activated Partial Thromboplast Time 103 SEC (24-38) 99 SEC (24-38) Glucose (Fingerstick) 241 mg/dL (70-99) White Blood Count 13.4 x10^3/uL (4.0-11.0) Red Blood Count 4.32 x10^6/uL (4.30-5.70) Hemoglobin 12.3 g/dL (13.0-17.5) Hematocrit 37.9 % (39.0-53.0) Mean Corpuscular Volume 88 fL (79-100) Mean Corpuscular Hemoglobin 29 pg (25-35) Mean Corpuscular Hemoglobin Concent 33 g/dL (31-37) Red Cell Distribution Width 16.0 % (11.5-14.5) Platelet Count 117 x10^3/uL (140-400) Sodium Level 137 mmol/L (136-145) Potassium Level 5.0 mmol/L (3.5-5.1) Chloride Level 102 mmol/L (98-107) Carbon Dioxide Level 27 mmol/L (21-32) Anion Gap 8 (6-14) Blood Urea Nitrogen 79 mg/dL (8-26) Creatinine 6.0 mg/dL (0.7-1.3) Estimated GFR (Cockcroft-Gault) 9.8 BUN/Creatinine Ratio 13 (6-20) Glucose Level 309 mg/dL (70-99) Calcium Level 7.5 mg/dL (8.5-10.1) Phosphorus Level 8.0 mg/dL (2.6-4.7) Magnesium Level 2.8 mg/dL (1.8-2.4) Total Bilirubin 0.4 mg/dL (0.2-1.0) Aspartate Amino Transf (AST/SGOT) 41 U/L (15-37) Alanine Aminotransferase (ALT/SGPT) 33 U/L (16-63) Alkaline Phosphatase 37 U/L (46-116) Total Protein 5.4 g/dL (6.4-8.2) Albumin 1.4 g/dL (3.4-5.0) Albumin/Globulin Ratio 0.4 (1.0-1.7) Test 08/01/21 06:02 08/01/21 07:44 08/01/21 08:45 Glucose (Fingerstick) 297 mg/dL (70-99) O2 Saturation 90 % (92-99) Arterial Blood pH 7.19 (7.35-7.45) Arterial Blood pCO2 at Patient Temp 61 mmHg (35-46) Arterial Blood pO2 at Patient Temp 65 mmHg (75-108) Arterial Blood HCO3 22 mmol/L (21-28) Arterial Blood Base Excess -7 mmol/L (-3-3) FiO2 100 Activated Partial Thromboplast Time > 150 SEC (24-38) Medications Active Scripts Medications Dose Route/Sig Max Daily Dose Days Date Category Dose Instructions Simvastatin 10 Mg Tablet 1 Tab PO QHS 07/28/21 Reported Amlodipine Besylate 5 Mg Tablet 5 Mg PO DAILY 07/28/21 Reported Lisinopril-Hctz 20-25 Mg Tab (Lisinopril/Hydrochlorothiazide) 1 Each Tablet 1 Tab PO DAILY 07/28/21 Reported Levothyroxine Sodium 25 Mcg Tablet 1 Tab PO DAILY 07/28/21 Reported D3-50 (Cholecalciferol (Vitamin D3)) 50,000 Unit Capsule 5,000 Unit PO DAILY 07/28/21 Reported Pantoprazole Sodium (Pantoprazole Sodium) 40 Mg Tablet.dr 20 Mg PO DAILYAC 07/28/21 Reported Aspirin 81 Mg Tab.chew 81 Mg PO DAILY 07/28/21 Reported Silvadene (Silver Sulfadiazine) 20 Gm Cream..g. 1 Keo TP BID 12/31/16 Rx Apply twice a day to the burn area Percocet 5-325 Mg Tablet (Oxycodone/Acetaminophen) 1 Each Tablet 1-2 Tab PO Q4-6HRS 12/31/16 Rx Comments Chest x-ray reviewed 07/31/2021 Extensive subcutaneous emphysema in the anterior chest and neck. No evidence of definite pneumothorax. reviewed cxr 07/30 b lat infilt sub cut emphysema and pneumonmediastinum stable ett ok repeat cxr 07/29 reviewed b lat infilt sub cut emphysema and pneumonmediastinum stable ett ok Impression . IMPRESSION: 1. Acute hypoxic respiratory failure secondary to COVID-19 viral pneumonia/ARDS . intubated 07/30/2021 2. Abnormal chest x-ray with diffuse bilateral patchy interstitial infiltrates consistent with COVID-19 viral pneumonia./Pneumomediastinum. 3. Unvaccinated for COVID-19. 4. Underlying obesity, also contributing to hypoxia. 5. suspect ayesha 6. pneumomediatinum, with increasing subcutaneous emphysema in the anterior chest and neck. No evidence of pneumothorax. 7. BEN now requiring hemodialysis. 8. Metabolic acidosis secondary to BEN and sepsis 9. Nonocclusive thrombus in left popliteal vein. Currently on heparin per protocol. 10. Thrombocytopenia likely secondary to sepsis. Plan . Updated 08/01/2021. 1. Continue present assist control mode. Arterial blood gases reviewed. Will allow permissive hypercapnia and minimize barotrauma by keeping low tidal volume and low PEEP. 2. versed fentanyl precedex 3. cxr reviewed, monitor sub cut emphysema and pneumomediastinum. No definite evidence of pneumothorax. We will closely watch x-rays. 4. Continue empiric antibiotic. 5. Dexamethasone per protocol. 6. Finish the course of remdesivir. 7. Lovenox for DVT prophylaxis. 8. pressors to keep map 65 9. Hemodialysis per renal. 10. Appreciate hematology consultation. Patient now on argatroban. Monitor platelets closely 11. Discussed with interventional radiology. No need for chest tubes at present. 12. Discussed with patient's in detail 07/31/2021. Explained to her that critical illness and multisystem organ dysfunction secondary to COVID-19. Advanced directives discussed. She wants full code. Critical care time 30 minutes Updated 07/31/2021. 1. cont vent support setting reviewed review abg make changes per abg titrate peep as tolerated. Will minimize PEEP and also reduce tidal volume to avoid barotrauma. 2. versed fentanyl precedex 3. cxr reviewed, monitor sub cut emphysema and pneumomediastinum. No definite evidence of pneumothorax. We will closely watch x-rays. 4. Continue empiric antibiotic. 5. Dexamethasone per protocol. 6. Finish the course of remdesivir. 7. Lovenox for DVT prophylaxis. 8. pressors to keep map 65 9. Hemodialysis per renal. 10. Give 1 amp of bicarb for now before dialysis 11. Discussed with interventional radiology. No need for chest tubes at present. 12. Discussed with patient's in detail. Explained to her that critical illness and multisystem organ dysfunction secondary to COVID-19. Advanced directives discussed. She wants full code. 13. At present we will discontinue Lovenox and changed to heparin per protocol. Consult hematology. May need argatroban. cc time 30 min no overlap RECOMMENDATIONS: 1. cont vent support setting reviewed review abg make changes per abg titrate peep as tolerated 2. versed fentanyl precedex 3. cxr reviewed, stable monitor sub cut emphysema and pneumomediastinum 4. Continue empiric antibiotic. 5. Dexamethasone per protocol. 6. Finish the course of remdesivir. 7. Lovenox for DVT prophylaxis. 8. pressors to keep map 65 Chart reviewed. Imaging studies reviewed. discussed w rn rt multiple times critically ill cc time 30 min no overlap GERRY MONROY MD Aug 01, 2021 10:43
[2021-08-01] MEDS ORDERED: ALBUMIN HUMAN 25% 200 ML IV PRN (12:30)
[2021-08-01] MEDS ORDERED: DIALYSIS PATIENT. MC PRN ×2 (12:30)
[2021-08-01] MEDS ORDERED: IV NORMAL SALINE 1000ML BAG 1,000 ML IV PRN ×2 (12:30)
[2021-08-01] MEDS: VECURONIUM BOLUS 10 MG VIAL. IV PRN ×2 (17:36→22:16)
[2021-08-01] MEDS: fentaNYL HIGH DOSE PCA 55 ML IV PRN (21:24)
[2021-08-01] MEDS ORDERED: AMINO ACID IV SCH (22:00)
[2021-08-01] MEDS ORDERED: TOTAL PARENTERAL NUTRITION IV SCH (22:00)
[2021-08-01] MEDS ORDERED: DEXTROSE 70% IV SCH (22:00)
[2021-08-01] MEDS ORDERED: [UNRECOGNIZED DRUG - OTHER] IV SCH (22:00)
[2021-08-02] VITALS (24 sets, daily range): BP systolic 76–119; BP diastolic 55–74
[2021-08-02] MEDS: INSULIN LISPRO 300 UNITS/3 ML VIAL. SQ SCH ×6 (00:31→18:09)
[2021-08-02 00:44] LABS: BASE EXCESS ABG -4 mmol/L (-3-3); HCO3 ABG 28 mmol/L (21-28); PO2 ABG 60 mmHg (75-108); SAT O2 ABG 87 % (92-99)
[2021-08-02 00:52] LABS: FIO2 ABG 100; PCO2 ABG 82 mmHg (35-46)
--- NOTE | 2021-08-02 01:50 | RAD ---
EXAM: XR CHEST 1V 08/02/2021 12:34 AM CLINICAL INDICATION: Low oxygen saturation COMPARISON: Chest radiograph 07/31/2021 TECHNIQUE: AP semierect view of the chest FINDINGS: Right IJ central venous catheter projecting over the superior vena cava is unchanged. A ri ght PICC with tip seen to the level of the proximal superior vena cava is unchanged. A nasogastric tu be courses into the stomach and terminates out of view. The endotracheal tube terminates approximatel y 5.8 cm above the [place]. The cardiac silhouette is stable. Pneumomediastinum is unchanged. Diffuse bilateral interstitial and airspace opacities are redemonstrated, slightly decreased along the right lung base where the diaphra gm is better visualized. There is no definite pneumothorax. No pleural effusion. Subcutaneous emphyse ma is slightly decreased in the supraclavicular regions. IMPRESSION: 1. Unchanged lines and tubes. 2. Unchanged pneumomediastinum. 3. Diffuse bilateral pulmonary opacities, slightly decreased at the right lung base. 4. Slightly decreased extensive subcutaneous emphysema. Electronically signed by: Shaniqua Malin MD (08/02/2021 1:47 AM) [id number]
[2021-08-02] MEDS: DEXMEDETOMIDINE 400 MCG in IV NORMAL SALINE 100ML 96 ML IV PRN ×5 (02:28→20:18)
[2021-08-02 04:27] LABS: HEMATOCRIT 40.1 % (39.0-53.0); HEMOGLOBIN 13.1 g/dL (13.0-17.5); RED BLOOD COUNT 4.58 x10^6/uL (4.30-5.70); RED CELL DISTRIBUTION WIDTH 15.9 % (11.5-14.5)
[2021-08-02 04:39] LABS: ALBUMIN 1.7 g/dL (3.4-5.0); ALBUMIN/GLOBULIN RATIO 0.4 (1.0-1.7); CALCIUM 7.4 mg/dL (8.5-10.1); CREATININE 5.8 mg/dL (0.7-1.3); GFR 10.2; MAGNESIUM 2.5 mg/dL (1.8-2.4); PHOSPHORUS 7.4 mg/dL (2.6-4.7); TOTAL BILIRUBIN 0.4 mg/dL (0.2-1.0); TOTAL PROTEIN 5.9 g/dL (6.4-8.2)
[2021-08-02] MEDS: PIPERACILLIN/TAZOBACTAM 2.25 GM in IV NORMAL SALINE 50ML 50 ML IV SCH ×3 (05:51→22:09)
[2021-08-02] MEDS: MIDAZOLAM 100mg/100ml NS BAG 100 ML IV PRN ×2 (07:19→20:19)
[2021-08-02 08:31] LABS: BASE EXCESS ABG -6 mmol/L (-3-3); HCO3 ABG 23 mmol/L (21-28); PO2 ABG 63 mmHg (75-108); SAT O2 ABG 90 % (92-99)
[2021-08-02 08:36] LABS: FIO2 ABG 100; PCO2 ABG 61 mmHg (35-46)
--- NOTE | 2021-08-02 09:03 | PDOC ---
DATE OF SERVICE DATE: 08/02/21 TIME: 09:00 SUBJECTIVE ROS Remains Intubated OBJECTIVE Vital Signs Vital Signs Date Time Temp Pulse Resp B/P (MAP) Pulse Ox O2 Delivery O2 Flow Rate FiO2 08/02/21 08:18 90 Ventilator 08/02/21 06:00 72 28 85/55 (65) 08/02/21 04:00 98.1 98.1 I & 0 Intake and Output 08/02/21 07:00 Intake Total 3002 ml Output Total 163 ml Balance 2839 ml IV Total 3002 ml Output Urine Total 13 ml Gastric Drainage Total 150 ml PHYSICAL EXAM Physical Exam General: Intubated HEENT: ETT AND OGT Neck Supple Lungs: decreased at bases, Intubated Heart: Regular rate Abdomen: Normal bowel sounds, Soft, Obese Extremities: No cyanosis Skin: No breakdown, No rash Neuro: sedated Psych/Mental Status Unable to assess Butler in place DIAGNOSIS/ASSESSMENT Assessment & Plan BEN-ATN,OliigoAnuric , Initiated dialysis 07/31 x 2 treatment , currently no emergent indication for dialysis today Access Temp HDC Hyperkalemia - Resolved COVID 19 Pneumonia / Unvaccinated for Covid 19 Acute Hypoxic Resp Failure intubated/MV Pneumomediastinum, with increasing subcutaneous emphysema in the anterior chest and neck. No evidence of pneumothorax. No need for chest tubes per Pulm . Thrombocytopenia likely secondary to sepsis. Obesity COMMENT/RELEVANT DATA Meds Current Medications Medications (Trade) Dose Ordered Sig/Shaheen Start Time Stop Time Status Last Admin Dose Admin Acetaminophen (Tylenol Supp) 650 mg PRN Q4HRS PRN 07/30/21 22:15 07/30/21 22:40 650 MG Acetaminophen (Tylenol) 650 mg PRN Q4HRS PRN 07/28/21 09:00 07/30/21 22:08 DC Albumin Human 200 ml @ 200 mls/hr 1X PRN PRN 08/01/21 12:30 08/01/21 18:29 DC 08/01/21 14:50 200 MLS/HR Amino Acids/ Electrolytes/ Dextrose 1,000 ml @ 80 mls/hr [id number] 07/29/21 10:00 07/29/21 21:59 DC 07/29/21 09:56 80 MLS/HR Argatroban (Argatroban Per Pharmacy) 1 each PRN DAILY PRN 07/31/21 16:30 08/01/21 09:38 1 EACH Argatroban 50 mg/ Sodium Chloride 50 ml @ 0 mls/hr CONT PRN 07/31/21 16:30 08/01/21 21:59 2.54 MLS/HR Atropine Sulfate (ATROPINE 0.5mg SYRINGE) 0.5 mg PRN Q5MIN PRN 07/27/21 23:00 Azithromycin (Zithromax) 250 mg DAILY 07/28/21 10:00 07/29/21 09:01 DC 07/28/21 10:33 250 MG Azithromycin 250 mg/Sodium Chloride 250 ml @ 250 mls/hr Q24H 07/29/21 10:00 08/01/21 09:54 250 MLS/HR Calcium Gluconate 1000 mg/Sodium Chloride 110 ml @ 220 mls/hr 1X ONCE 07/30/21 18:00 07/30/21 18:29 DC 07/30/21 17:37 220 MLS/HR Dexamethasone Sodium Phosphate (Decadron) 10 mg DAILY 07/28/21 09:00 08/01/21 08:38 10 MG Dexmedetomidine HCl 400 mcg/ Sodium Chloride 100 ml @ 0 mls/hr CONT PRN 07/27/21 23:00 08/02/21 07:20 23.4 MLS/HR Dextrose (Dextrose 50%-Water Syringe) 12.5 gm PRN Q15MIN PRN 08/01/21 09:15 Enoxaparin Sodium (Lovenox 120mg Syringe) 120 mg Q12HR 07/29/21 09:00 07/30/21 11:55 DC 07/30/21 08:31 120 MG Enoxaparin Sodium (Lovenox 40mg Syringe) 40 mg Q24H 07/28/21 17:00 07/29/21 08:10 DC 07/28/21 17:10 40 MG Enoxaparin Sodium (Lovenox Per Pharmacy Treatment Dosing) 1 each PRN DAILY PRN 07/29/21 08:15 07/30/21 11:55 DC Fentanyl Citrate 55 ml @ 0 mls/hr CONT PRN 07/29/21 12:47 08/01/21 21:24 2 MLS/HR Fentanyl Citrate (Fentanyl 2ml Vial) 50 mcg PRN Q1HR PRN 07/29/21 07:00 Furosemide (Lasix) 100 mg 1X ONCE 07/30/21 17:00 07/30/21 17:24 DC 07/30/21 17:43 100 MG Heparin Sodium (Porcine) (Heparin Sodium) 1,900 unit PRN Q6HRS PRN 07/31/21 11:15 07/31/21 16:27 DC Heparin Sodium/ Dextrose 250 ml @ 0 mls/hr CONT PRN 07/31/21 11:15 07/31/21 16:28 DC 07/31/21 16:22 20.3 MLS/HR Info (PHARMACY MONITORING -- do not chart) 1 each PRN DAILY PRN 08/01/21 12:30 Info (Tpn Per Pharmacy) 1 each PRN DAILY PRN 07/29/21 11:45 08/01/21 09:57 1 EACH Insulin Human Lispro (HumaLOG) 0-9 UNITS Q6HRS 08/01/21 09:15 08/02/21 06:09 9 UNITS Insulin Human Regular (HumuLIN R VIAL) 15 unit 1X ONCE 07/30/21 17:00 07/30/21 17:24 DC 07/30/21 18:14 15 UNIT Lactobacillus Rhamnosus (Culturelle) 1 cap BID 07/28/21 21:00 07/29/21 09:05 DC 07/28/21 21:08 1 CAP Lactulose (Lactulose) 20 gm ONCE ONCE 07/30/21 09:00 07/30/21 09:06 DC 07/30/21 11:42 20 GM Lidocaine HCl (Buffered Lidocaine 1%) 3 ml 1X ONCE 07/31/21 10:15 07/31/21 10:16 DC 07/31/21 10:08 3 ML Midazolam HCl 100 ml @ 0 mls/hr CONT PRN 07/29/21 07:00 08/02/21 07:19 8 MLS/HR Morphine Sulfate (Morphine Sulfate) 4 mg PRN Q1HR PRN 07/29/21 07:00 07/29/21 23:30 DC Norepinephrine Bitartrate 8 mg/ Dextrose 258 ml @ 23.51 mls/ hr CONT PRN 07/29/21 11:00 07/31/21 18:09 11 MLS/HR Ondansetron HCl (Zofran) 4 mg PRN Q4HRS PRN 07/28/21 09:00 Pantoprazole Sodium (PROTONIX VIAL for IV PUSH) 40 mg BID 07/29/21 21:00 08/01/21 21:22 40 MG Piperacillin Sod/ Tazobactam Sod 2.25 gm/Sodium Chloride 50 ml @ 100 mls/hr Q8HRS 07/31/21 14:00 08/02/21 05:51 100 MLS/HR Piperacillin Sod/ Tazobactam Sod 3.375 gm/Sodium Chloride 50 ml @ 100 mls/hr Q6HRS 07/28/21 12:00 07/31/21 10:02 DC 07/31/21 05:41 100 MLS/HR Propofol 100 ml @ 0 mls/hr CONT PRN 07/29/21 07:00 07/29/21 08:47 14.5 MLS/HR Remdesivir 100 mg/ Sodium Chloride 230 ml @ 460 mls/hr Q24H 07/28/21 18:00 07/29/21 18:29 DC 07/29/21 17:58 460 MLS/HR Sodium Polystyrene Sulfonate (Kayexalate) 30 gm 1X ONCE 07/30/21 09:00 07/30/21 09:06 DC 07/30/21 11:43 30 GM Sodium Acetate 70 meq/Calcium Gluconate 10 meq/ Multivitamins 5 ml/Zinc/Copper/ Manganese/ Selenium 1 ml/ Total Parenteral Nutrition/Amino Acids/Dextrose 1,512 ml @ 63 mls/hr TPN CONT 07/30/21 22:00 07/31/21 21:59 DC 07/30/21 22:00 63 MLS/HR Sodium Acetate 70 meq/Calcium Gluconate 10 meq/ Multivitamins 5 ml/Zinc/Copper/ Manganese/ Selenium 1 ml/ Total Parenteral Nutrition/Amino Acids/Dextrose/ Fat Emulsion Intravenous 1,512 ml @ 63 mls/hr TPN CONT 08/01/21 22:00 08/02/21 21:59 08/01/21 22:15 63 MLS/HR Sodium Acetate 70 meq/Potassium Chloride 50 meq/ Potassium Phosphate 13.6 mmol/Magnesium Sulfate 10 meq/ Calcium Gluconate 10 meq/ Multivitamins 5 ml/Zinc/Copper/ Manganese/ Selenium 1 ml/ Total Parenteral Nutrition/Amino Acids/Dextrose/ Fat Emulsion Intravenous 1,512 ml @ 63 mls/hr TPN CONT 07/29/21 22:00 07/30/21 21:59 DC 07/29/21 22:27 63 MLS/HR Sodium Bicarbonate (Sodium Bicarb Adult 8.4% Syr) 50 meq 1X ONCE 07/31/21 08:45 07/31/21 08:46 DC 07/31/21 09:03 50 MEQ Sodium Chloride 1,000 ml @ 400 mls/hr Q2H30M PRN 08/01/21 12:30 08/02/21 00:29 DC Sodium Chloride (Normal Saline Flush) 10 ml 1X PRN PRN 07/31/21 16:15 08/01/21 16:14 DC Sterile Water (WATER for RESP) 1,000 ml CONT PRN 07/27/21 23:15 07/27/21 23:50 1,000 ML Succinylcholine Chloride (Anectine) 100 mg 1X ONCE 07/29/21 08:00 07/29/21 08:01 DC 07/29/21 08:00 100 MG Vecuronium [place] 50 mg/ Sodium Chloride 50 ml @ 5.832 mls/ hr CONT PRN 07/29/21 19:00 Vecuronium [place] (Norcuron Bolus) 6 mg PRN Q2HR PRN 07/29/21 10:15 08/01/21 22:16 6 MG Lab Laboratory Tests Test 08/01/21 13:21 08/01/21 14:55 08/01/21 16:00 08/01/21 17:43 Glucose (Fingerstick) 304 mg/dL (70-99) 235 mg/dL (70-99) Activated Partial Thromboplast Time 80 SEC (24-38) C-Reactive Protein, Quantitative 90.1 mg/L (0-3.3) Test 08/01/21 18:45 08/01/21 23:45 08/02/21 00:00 08/02/21 00:36 Activated Partial Thromboplast Time 118 SEC (24-38) 69 SEC (24-38) Glucose (Fingerstick) 313 mg/dL (70-99) O2 Saturation 87 % (92-99) Arterial Blood pH 7.15 (7.35-7.45) Arterial Blood pCO2 at Patient Temp 82 mmHg (35-46) Arterial Blood pO2 at Patient Temp 60 mmHg (75-108) Arterial Blood HCO3 28 mmol/L (21-28) Arterial Blood Base Excess -4 mmol/L (-3-3) FiO2 100 Test 08/02/21 04:10 08/02/21 05:58 08/02/21 08:27 White Blood Count 17.0 x10^3/uL (4.0-11.0) Red Blood Count 4.58 x10^6/uL (4.30-5.70) Hemoglobin 13.1 g/dL (13.0-17.5) Hematocrit 40.1 % (39.0-53.0) Mean Corpuscular Volume 88 fL (79-100) Mean Corpuscular Hemoglobin 29 pg (25-35) Mean Corpuscular Hemoglobin Concent 33 g/dL (31-37) Red Cell Distribution Width 15.9 % (11.5-14.5) Platelet Count 129 x10^3/uL (140-400) Activated Partial Thromboplast Time 69 SEC (24-38) Sodium Level 136 mmol/L (136-145) Potassium Level 5.0 mmol/L (3.5-5.1) Chloride Level 99 mmol/L (98-107) Carbon Dioxide Level 26 mmol/L (21-32) Anion Gap 11 (6-14) Blood Urea Nitrogen 78 mg/dL (8-26) Creatinine 5.8 mg/dL (0.7-1.3) Estimated GFR (Cockcroft-Gault) 10.2 BUN/Creatinine Ratio 13 (6-20) Glucose Level 356 mg/dL (70-99) Calcium Level 7.4 mg/dL (8.5-10.1) Phosphorus Level 7.4 mg/dL (2.6-4.7) Magnesium Level 2.5 mg/dL (1.8-2.4) Total Bilirubin 0.4 mg/dL (0.2-1.0) Aspartate Amino Transf (AST/SGOT) 34 U/L (15-37) Alanine Aminotransferase (ALT/SGPT) 34 U/L (16-63) Alkaline Phosphatase 51 U/L (46-116) Total Protein 5.9 g/dL (6.4-8.2) Albumin 1.7 g/dL (3.4-5.0) Albumin/Globulin Ratio 0.4 (1.0-1.7) Glucose (Fingerstick) 309 mg/dL (70-99) O2 Saturation 90 % (92-99) Arterial Blood pH 7.20 (7.35-7.45) Arterial Blood pCO2 at Patient Temp 61 mmHg (35-46) Arterial Blood pO2 at Patient Temp 63 mmHg (75-108) Arterial Blood HCO3 23 mmol/L (21-28) Arterial Blood Base Excess -6 mmol/L (-3-3) FiO2 100 Results All relevant outside records, renal labs, imaging studies, telemetry/EKG's were reviewed. Justicifation of Admission Dx: Justifications for Admission: Justification of Admission Dx: N/A DONNY CARLOS MD Aug 02, 2021 09:03
[2021-08-02] MEDS: PANTOPRAZOLE IV PUSH 40 MG VIAL. IVP SCH ×2 (09:13→21:03)
[2021-08-02] MEDS: AZITHROMYCIN 250 MG in IV NORMAL SALINE 250ML 250 ML IV SCH (09:14)
[2021-08-02] MEDS: DEXAMETHASONE SOD PHOS 4 MG/ML VIAL IVP SCH (09:14)
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
[2021-08-02] MEDS: TPN PER PHARMACY MC PRN (10:27)
--- NOTE | 2021-08-02 10:50 | NUR ---
Pharmacy TPN Dosing Note S: MORENA HAMPTON is a 56 year old M Currently receiving Central Continuous TPN started 07/29/21 B:Pertinent PMH: NPO Height: 5 feet, 8 inches Weight: 128.562236 kg Current diet: LABS: Sodium: 136 Potassium: 5 Chloride: 99 Calcium: 7.4 Corrected Calcium: 9.24 Magnesium: 2.8 CO2: 26 SCr: 5.8 Glucose: 235-356 Albumin: 1.7 AST: 34 ALT: 34 TPN FORMULA: TPN TYPE: Central Continuous AMINO ACIDS: 105 gm DEXTROSE: 295 gm LIPIDS: 40 gm SODIUM CHLORIDE: mEq SODIUM ACETATE: 70 mEq SODIUM PHOSPHATE: mmol POTASSIUM CHLORIDE: -- mEq POTASSIUM ACETATE: mEq POTASSIUM PHOSPHATE: -- mmol MAGNESIUM: -- mEq CALCIUM: 10 mEq INSULIN: units MULTIPLE VITAMIN: 5 ml TRACE ELEMENTS: 1 ml(s) TPN PLAN: Elevated phos and mag today (already none in TPN) Continue same formula. R: Continue TPN as ordered Will monitor electrolytes, glucose, and tolerance to TPN. MICHAEL VALDIVIA, [facility], 08/02/21 [id number]
--- NOTE | 2021-08-02 16:18 | NUR ---
SS following up with discharge planning. SS reviewed pt chart and discussed with pt RN. Pt is currently on the vent at 100%. Peep of 14. COVID19 positive. Not stable. Pt on Versed, Fentanyl, Precedex, TPN, Argatroban, IV Zosyn, and IV Azithromycin. SS will continue to follow for discharge planning.
[2021-08-02] MEDS: VECURONIUM BOLUS 10 MG VIAL. IV PRN (20:20)
--- NOTE | 2021-08-02 20:57 | PN ---
DATE: 08/02/2021 SUBJECTIVE: The patent continues to be sedated, intubated and mechanically ventilated. His subcutaneous emphysema seems to be worse, although chest x-ray showed no evidence of pneumothorax. However, it did show unchanged diffuse bilateral pulmonary opacities, slightly decreased at the right lung base. He continues to be on FiO2 of 100%, maintaining his oxygen saturation 76%. PHYSICAL EXAMINATION: GENERAL: When I examined him, there was no pallor, jaundice or cyanosis, no lymphadenopathy, no thyromegaly, no jugular venous distention, but generalized anasarca. VITAL SIGNS: His heart rate was 72, blood pressure was 85/55, temperature was 98.1, respiratory rate was 28 and oxygen saturation was 90% on FiO2 of 100%. HEAD, EYES, EARS, NOSE AND THROAT: Normocephalic, atraumatic with orotracheal and orogastric tube in place. NECK: Supple with extensive subcutaneous emphysema. HEART: Distant first and second heart sounds, no gallop or murmur. CHEST: Shows central trachea, equal bilateral expansion, air entry, vesicular breath sounds. I could not really appreciate any crepitation or rhonchi anteriorly. ABDOMEN: Distended, soft, nontender. NEUROLOGIC: He is heavily sedated. His intake was 3215, output was 117. LABORATORY DATA: This morning showed a white cell count 17,000, hemoglobin 13, hematocrit 40, MCV 88 and platelet count of 129,000. His chemistry showed a serum sodium 136, potassium 5, chloride 99, bicarbonate 26, anion gap of 11, BUN 78, creatinine 5.8. Estimated GFR was 10.2. Blood sugar was 356, calcium 7.4, phosphorus 7.4, magnesium 2.5. Total bilirubin, AST, ALT, alkaline phosphatase were normal. Total protein 5.9, albumin was 1.7. His arterial blood gases this morning showed a pH of 7.20, pCO2 of 61, pO2 of 63, bicarbonate 23 and oxygen saturation was 90% on FiO2 of 100%. ASSESSMENT: 1. Acute hypoxic respiratory failure with acute respiratory distress syndrome requiring intubation and mechanical ventilation. 2. COVID-19 pneumonia/acute respiratory distress syndrome. 3. Morbid obesity with possible obstructive sleep apnea. 4. Pneumomediastinum and extensive subcutaneous emphysema. No evidence of pneumothorax. 5. Acute kidney injury requiring hemodialysis. 6. Metabolic acidosis. 7. The patient has nonocclusive thrombus in the left popliteal vein, for which he was started on dabigatran. 8. Thrombocytopenia, for which he was seen by the bulb packer and his Lovenox was discontinued and heparin-induced antibody was sent. He was switched to argatroban drip. PLAN: Continue with mechanical ventilation. Continue with antibiotic. Continue with monitor blood sugar and adjust insulin as needed. Continue GI prophylaxis as well as DVT prophylaxis. His overall prognosis is extremely poor. PAN/YUNIEL DR: Charlie TID: [id number]
[2021-08-02] MEDS ORDERED: INSULIN GLARGINE SYRINGE. SQ SCH (21:00)
[2021-08-02] MEDS ORDERED: DEXTROSE 70% IV SCH (22:00)
[2021-08-02] MEDS ORDERED: [UNRECOGNIZED DRUG - OTHER] IV SCH (22:00)
[2021-08-02] MEDS ORDERED: TOTAL PARENTERAL NUTRITION IV SCH (22:00)
[2021-08-02] MEDS ORDERED: AMINO ACID IV SCH (22:00)
[2021-08-02] MEDS: fentaNYL HIGH DOSE PCA 55 ML IV PRN (23:06)
[2021-08-02] MEDS: ARGATROBAN 50 MG in IV NORMAL SALINE 50ML 50 ML IV PRN (23:11)
[2021-08-03] VITALS: BP 86/60
[2021-08-03] MEDS: DEXMEDETOMIDINE 400 MCG in IV NORMAL SALINE 100ML 96 ML IV PRN ×3 (00:27→07:50)
--- NOTE | 2021-08-03 00:40 | NUR ---
Patient O2 sats in mid 80s during the day and at the beginning of shift, sats continually dropping. Patient not turned or moved, ETT has not moved, vent filter does not need to be changed. RT assessed patient and unable to do any further interventions for improvement. Patient given Vec with no improvement noted. Dr. Villanueva notified of O2 drop, no new orders received at this time. Stated he spoke with patients today and explained the situation. Dr. Villanueva also said we should not move or suction patient and ensure he is well sedated. Patient's sedation increased, will continue to monitor. At 0030 patient's O2 had continued to drop and patient's was notified of his condition. Patient's states that she still wants him to be a full code and that she will notify her son of the condition change.
[2021-08-03] MEDS: INSULIN LISPRO 300 UNITS/3 ML VIAL. SQ SCH ×4 (00:52→06:32)
[2021-08-03 01:00] VITALS: BP 77/49
[2021-08-03] MEDS: NOREPINEPHRINE VIAL 8 MG in IV DEXTROSE 5% 250 ML IV PRN (01:34)
[2021-08-03 02:00] VITALS: BP 76/56
[2021-08-03 03:00] VITALS: BP 74/61
[2021-08-03] MEDS ORDERED: NOREPINEPHRINE VIAL 32 MG in IV D5W 250ML IV PRN (05:00)
[2021-08-03] MEDS ORDERED: VASOPRESSIN - VASOSTRICT 20 UNIT in IV DEXTROSE 5% 100ML 100 ML IV PRN (05:30)
[2021-08-03] MEDS ORDERED: EPINEPHrine VIAL 5 MG in IV NORMAL SALINE 250ML 250 ML IV PRN (06:30)
[2021-08-03] MEDS: PIPERACILLIN/TAZOBACTAM 2.25 GM in IV NORMAL SALINE 50ML 50 ML IV SCH (06:30)
[2021-08-03] MEDS ORDERED: EPINEPHrine SYRINGE 1 MG/10 ML SYRINGE ONE (07:00)
[2021-08-03] MEDS ORDERED: SODIUM BICARB ADULT 8.4% 50 MEQ/50 ML DISP.SYRIN. ONE (07:00)
--- NOTE | 2021-08-03 07:10 | NUR ---
Patient O2 Sats and blood pressure continued to decline. Unable to obtain BP--Started Levophed(0.1mcg/kg/min) at 0134 and titrated per protocol until 0523. At 0523 Levophed was maxed out at 1mcg/kg/min. Still unable to get BP reading, Dr. Desai notified, and orders received to start vasopressin and epi drips. Dr. Villanueva notified of decline in status. Vasopressin started at 0545 and still are unable to get a BP reading. Labs obtained and sent; FSBS 353. Epi started at 0634 at 0.1 mcg/kg/min. No change in patient status. Patient's QRS complex widening but patient has maintained a pulse. Patient's notified; phone placed to patient's ear for to say good-bye per her request. Patient's continues to keep patient a full code.
[2021-08-03] MEDS: MIDAZOLAM 100mg/100ml NS BAG 100 ML IV PRN (07:50)
[2021-08-03] MEDS ORDERED: IV NORMAL SALINE 1000ML BAG 1,000 ML IV PRN (08:15)
[2021-08-03] MEDS ORDERED: DIALYSIS PATIENT. MC PRN ×2 (08:15)
--- NOTE | 2021-08-03 08:21 | NUR ---
Arrived on unit, pt O2 sats in 50's, unable to get BP, pt on numerous gtts, including epi, vasopression, levophed. Pt coded 0735, two rounds of CPR administered-see code sheet. Called updated on situation. Notified Dr Villanueva of situation-he will call . Orders per Shara to make DNR at 740. 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 Phone number of hospital given to Galilea-she will called when she decides home.
== END 2021-08-03 08:02 | DRG 870 ==
LOC: 1 WEST ICU 21:36
PROVIDERS: ADMIT Internal Medicine; ATTEND Internal Medicine
PROC: 5A09357 Assistance with Respiratory Ventilation, Less than 24 Consecutive Hours, Continuous Positive Airway Pressure (ICD-10-PCS; 2021-07-27)
PROC: 02HV33Z Insertion of Infusion Device into Superior Vena Cava, Percutaneous Approach (ICD-10-PCS; 2021-07-28)
PROC: B548ZZA Ultrasonography of Superior Vena Cava, Guidance (ICD-10-PCS; 2021-07-28)
PROC: XW033E5 Introduction of Remdesivir Anti-infective into Peripheral Vein, Percutaneous Approach, New Technology Group 5 (ICD-10-PCS; 2021-07-28)
PROC: 5A09457 Assistance with Respiratory Ventilation, 24-96 Consecutive Hours, Continuous Positive Airway Pressure (ICD-10-PCS; 2021-07-28)
PROC: 5A1955Z Respiratory Ventilation, Greater than 96 Consecutive Hours (ICD-10-PCS; principal; 2021-07-29)
PROC: 0BH17EZ Insertion of Endotracheal Airway into Trachea, Via Natural or Artificial Opening (ICD-10-PCS; 2021-07-29)
PROC: 02HV33Z Insertion of Infusion Device into Superior Vena Cava, Percutaneous Approach (ICD-10-PCS; 2021-07-31)
PROC: B548ZZA Ultrasonography of Superior Vena Cava, Guidance (ICD-10-PCS; 2021-07-31)
PROC: 5A1D70Z Performance of Urinary Filtration, Intermittent, Less than 6 Hours Per Day (ICD-10-PCS; 2021-07-31)
PROC: 5A1D70Z Performance of Urinary Filtration, Intermittent, Less than 6 Hours Per Day (ICD-10-PCS; 2021-08-01)
PROC: 5A1D70Z Performance of Urinary Filtration, Intermittent, Less than 6 Hours Per Day (ICD-10-PCS; 2021-08-03)
DX: A41.89 Other specified sepsis (principal); U07.1 COVID-19; J96.02 Acute respiratory failure with hypercapnia; J12.82 Pneumonia due to coronavirus disease 2019; J96.01 Acute respiratory failure with hypoxia; N17.0 Acute kidney failure with tubular necrosis; I82.432 Acute embolism and thrombosis of left popliteal vein; Z68.41 Body mass index [BMI] 40.0-44.9, adult; D69.59 Other secondary thrombocytopenia; E03.9 Hypothyroidism, unspecified; E66.01 Morbid (severe) obesity due to excess calories; E78.5 Hyperlipidemia, unspecified; E87.5 Hyperkalemia; I12.9 Hypertensive chronic kidney disease with stage 1 through stage 4 chronic kidney disease, or unspecified chronic kidney disease; N18.9 Chronic kidney disease, unspecified; Z68.39 Body mass index [BMI] 39.0-39.9, adult; Z82.49 Family history of ischemic heart disease and other diseases of the circulatory system; K21.9 Gastro-esophageal reflux disease without esophagitis; Z28.3 Underimmunization status
CPT/HCPCS: 36415; 36556; 36569; 36600; 71045; 74018; 76937; 80048; 80053; 82542; 82805; 82962; 83735; 84100; 84478; 85007; 85025; 85027; 85379; 85610; 85730; 86140; 86706; 87340; 93970; 94002; 94003; 94660; C1892; C9113; J0171; J0330; J0456; J0610; J0883; J1100; J1644; J1650; J1815; J1940; J2250; J2543; J2704; J3010; J3475; J3480; J3490; J7050; J7060; P9046; G0378; J7030